=== PATIENT | female | born 1970 | race Caucasian/White ===

== ENCOUNTER 2018-02-23 13:14 | Observation (INO) | payer BC, SELFPAY ==
[2018-02-23] VITALS (8 sets, daily range): BP systolic 105–126; BP diastolic 49–79; PULSE 77–86; RESP 14–20; TEMP 36.5–37.1; O2SAT 96–100
--- NOTE | 2018-02-23 13:59 | NUR.NOTE ---
KRISTINA Palumbo is at the bedside.
--- NOTE | 2018-02-23 14:02 | DI.RAD_ITS ---
SYMPTOM/DIAGNOSIS: CHEST DISCOMFORT, DIFFICULTY SWALLOWING PA AND LATERAL CHEST: The heart size is normal. The lungs are well inflated and clear. There is no evidence of pneumothorax or pneumomediastinum. Surgical clips are noted in the right upper quadrant. IMPRESSION: Negative chest xray.
--- NOTE | 2018-02-23 14:04 | W.ED.GENAD ---
Discharge Plan Disposition Patient Disposition: [facility] Condition: Fair Discharge Details Chief Complaint: Abd Prob Clinical Impression: Food impaction of esophagus Primary Care Provider: Jessica Mack ED Provider: Deepali Clinton Home Meds and New Rx's Prescriptions: No Action amitriptyline 10 MG tablet 10 mg PO PRN RF: 0 meloxicam 7.5 MG/5 ML suspension 15 mg PO DAILY RF: 0 fexofenadine [Aller-ease] 180 MG tablet 180 mg PO DAILY RF: 0 omeprazole [Prilosec] 20 MG capsule,delayed release(DR/EC) 20 mg PO DAILY RF: 0 montelukast [Singulair] 10 MG tablet 10 mg PO DAILY RF: 0 fluticasone [Flonase] 16 GM spray,suspension 2 spry Inhalation DAILY RF: 0 sertraline 50 MG tablet 50 mg PO DAILY RF: 0 Magnesium Oxide [Mag-Oxide Magnesium] 200 MG Tablet 200 mg PO DAILY RF: 0 Discharge Instructions Stand Alone Forms: DSU Post EGD Instructions, Kate Serna (DSU) Medical Decision Making Patient is a 47-year-old female, company by , with chief complaint of difficulty swallowing. Patient has history of hiatal hernia, IBS, GERD, depression. Patient is status post cholecystectomy, history of and EGD. Reports that her last EGD was approximately 12 years ago. She reports she has had episodes where she has had a foreign body become lodged in her throat or sensation of foreign body being stuck on multiple occasions. Typically associates this with large meals, particularly once she enjoys that she may be eating quickly, but is usually able to handle this well at home. She was seen by her primary care yesterday who begin her on Carafate and Pepcid. However, patient is not been able to tolerate the medication. She reports that anything more than once of water causes her to bring the substance back up immediately. Is endorsing some chest pressure that radiates into the back. She reports that this pain and discomfort is typical of her foreign body sensations. Reports that she is also tried drinking soda quickly as this is also helped clear foreign bodies historically. However, she has not been able to keep this down. States that the symptoms came on while eating chicken 2 nights ago Patient is resting comfortably, handling secretions well. Lungs are clear. No abnormalities palpated over the neck or throat, no abnormalities noted in the posterior oropharynx. Consulted with general surgeon, Dr. Hernandez, who advised that we try IV glucagon to stage this is not she is she will plan on EGD Laboratory evaluation signfiicant for potassium of 3.3 Dr. Hernandez in department, we reviewed cxr, no acute abnormality noted. Dr. Hernandez consulted with patient. At this time, she advises EGD. She brought patient to OR for proceudre. HPI General Mode of arrival: ambulatory. Date/Time Provider Initiated Documentation: 02/23/18 13:20. Limitations to Documentation: no limitations. Information obtained by: patient and family. History of Present Illness 47 year old F presents to the emergency department with the chief complaint of FB sensation in throat, described as moderate, Quality is described as aching, and is localized to the neck and chest. Patient started experiencing this day(s) (2) and it has been constant. No relieving factors improve symptom(s), No exacerbating factors reported . Patient notes chest pain (has pressure which is typical with this sensation per her report) and loss of appetite; denies cough, fever/chills, headaches, nausea/vomiting, rash and shortness of breath. Patient did receive the following treatments prior to arrival, none Related Data Home Medications Medication Instructions Recorded Confirmed fexofenadine [Nicolasa] 180 mg PO DAILY 03/03/14 02/14/17 fluticasone [Flonase] 2 spry INHALATION DAILY 03/03/14 02/14/17 montelukast [Singulair] 10 mg PO DAILY 03/03/14 02/14/17 omeprazole [Prilosec] 20 mg PO DAILY 03/03/14 02/14/17 sertraline 50 mg PO DAILY 03/03/14 02/14/17 amitriptyline 10 mg PO PRN 12/13/16 02/14/17 meloxicam 15 mg PO DAILY ml 12/13/16 02/14/17 Magnesium Oxide [Mag-Oxide 200 mg PO DAILY 12/15/16 02/14/17 Magnesium] Allergies Allergy/AdvReac Type Severity Reaction Status Date / Time No Known Allergies Allergy Unverified 02/14/17 07:50 General Stated Complaint: Abd Prob SOCORRO: 3 Review of Systems Constitutional Reports as per HPI, Denies chills, Denies fatigue, Denies fever(s) and Denies headache(s) ENT Reports dysphagia and Denies headache(s) Cardiovascular Reports as per HPI, Denies chest pain and Denies dyspnea Respiratory Denies dyspnea Gastrointestinal Reports as per HPI, Denies abdominal pain, Denies belching, Denies bloating, Denies constipation, Denies cramping, Reports dysphagia, Reports heartburn, Denies nausea and Denies vomiting Musculoskeletal Reports as per HPI and Reports back pain (states pain radiates into back) Integumentary/Breasts Reports as per HPI and Denies rash Neurologic Denies headache(s) Endocrine Denies fatigue [facility] Medical History Depression GERD (gastroesophageal reflux disease) Hiatal hernia IBS (irritable bowel syndrome) Seasonal allergies Surgical History section Cholecystectomy Tonsillectomy and adenoidectomy Social History Smoking/Tobacco Use Status: Never Exam Const General: cooperative, healthy appearing, comfortable, no acute distress and well developed Nutritional Appearance: well nourished and overweight Orientation: alert and awake [facility] Head: normal to inspection Mouth: oral mucosae normal, lip normal, tongue normal, oropharynx normal and moist mucous membranes Teeth and gingiva: dentition normal Throat: posterior oropharynx normal, tonsils normal and uvula midline Neck Neck: normal visual inspection, full ROM, no lymphadenopathy, no meningeal signs, trachea midline, supple, no anterior neck swelling, nontender and no tracheal deviation Thyroid: thyroid normal Resp Effort & Inspection: normal respiratory effort, able to speak in complete sentences and no respiratory distress Auscultation: clear to auscultation bilaterally, no rales, no rhonchi and no wheezes Cardio Rate: regular rate Rhythm: regular rhythm Heart Sounds: S1 normal and S2 normal GI Inspection: normal to inspection Palpation: soft, no hepatosplenomegaly, no guarding, not rigid and nontender Back/Spine/Pelvis Back: no CVA tenderness Skin General skin exam: no rashes or lesions noted Trauma: no lacerations or abrasions Neuro General: alert and awake Cognition: normal cognition Speech: speech normal Gait: normal gait Psych Appearance: grossly normal and well kempt Mental Status: mental status grossly normal Speech and Movement: speech and movement normal Course Vital Signs Temperature 36.5 C 02/23/18 13:31 Pulse 81 02/23/18 13:31 Respiratory Rate 16 02/23/18 13:31 Blood Pressure 126/79 02/23/18 13:31 Pulse Oximetry 99 02/23/18 13:31 Temperature 36.5 C 02/23/18 13:31 Temperature Source Skin 02/23/18 13:31 Pulse 81 02/23/18 13:31 Respiratory Rate 16 02/23/18 13:31 Respiratory Effort 02/23/18 13:36 Blood Pressure 126/79 02/23/18 13:31 Blood Pressure Position Sitting 02/23/18 13:31 Pulse Oximetry 99 02/23/18 13:31 Pain Level 0 02/23/18 13:31
--- NOTE | 2018-02-23 14:16 | ED.GENADUL_ITS ---
Discharge Plan Disposition Patient Disposition: [facility] Condition: Fair Discharge Details Chief Complaint: Abd Prob Clinical Impression: Food impaction of esophagus Primary Care Provider: Jessica Mack ED Provider: Deepali Clinton Home Meds and New Rx's Prescriptions: No Action amitriptyline 10 MG tablet 10 mg PO PRN RF: 0 meloxicam 7.5 MG/5 ML suspension 15 mg PO DAILY RF: 0 fexofenadine [Aller-ease] 180 MG tablet 180 mg PO DAILY RF: 0 omeprazole [Prilosec] 20 MG capsule,delayed release(DR/EC) 20 mg PO DAILY RF: 0 montelukast [Singulair] 10 MG tablet 10 mg PO DAILY RF: 0 fluticasone [Flonase] 16 GM spray,suspension 2 spry Inhalation DAILY RF: 0 sertraline 50 MG tablet 50 mg PO DAILY RF: 0 Magnesium Oxide [Mag-Oxide Magnesium] 200 MG Tablet 200 mg PO DAILY RF: 0 Discharge Instructions Stand Alone Forms: DSU Post EGD Instructions, Kate Serna (DSU) Medical Decision Making Patient is a 47-year-old female, company by , with chief complaint of difficulty swallowing. Patient has history of hiatal hernia, IBS, GERD, depression. Patient is status post cholecystectomy, history of and EGD. Reports that her last EGD was approximately 12 years ago. She reports she has had episodes where she has had a foreign body become lodged in her throat or sensation of foreign body being stuck on multiple occasions. Typically associates this with large meals, particularly once she enjoys that she may be eating quickly, but is usually able to handle this well at home. She was seen by her primary care yesterday who begin her on Carafate and Pepcid. However, patient is not been able to tolerate the medication. She reports that anything more than once of water causes her to bring the substance back up immediately. Is endorsing some chest pressure that radiates into the back. She reports that this pain and discomfort is typical of her foreign body sensations. Reports that she is also tried drinking soda quickly as this is also helped clear foreign bodies historically. However, she has not been able to keep this down. States that the symptoms came on while eating chicken 2 nights ago Patient is resting comfortably, handling secretions well. Lungs are clear. No abnormalities palpated over the neck or throat, no abnormalities noted in the posterior oropharynx. Consulted with general surgeon, Dr. Hernandez, who advised that we try IV glucagon to stage this is not she is she will plan on EGD Laboratory evaluation signfiicant for potassium of 3.3 Dr. Hernandez in department, we reviewed cxr, no acute abnormality noted. Dr. Hernandez consulted with patient. At this time, she advises EGD. She brought patient to OR for proceudre. HPI General Mode of arrival: ambulatory . Date/Time Provider Initiated Documentation: 02/23/18 13:20 . Limitations to Documentation: no limitations . Information obtained by: patient and family . History of Present Illness 47 year old F presents to the emergency department with the chief complaint of FB sensation in throat, described as moderate, Quality is described as aching, and is localized to the neck and chest. Patient started experiencing this day(s) (2) and it has been constant. No relieving factors improve symptom(s), No exacerbating factors reported . Patient notes chest pain (has pressure which is typical with this sensation per her report) and loss of appetite; denies cough, fever/chills, headaches, nausea/vomiting, rash and shortness of breath. Patient did receive the following treatments prior to arrival, none Related Data Home Medications Medication Instructions Recorded Confirmed fexofenadine [Nicolasa] 180 mg PO DAILY 03/03/14 02/14/17 fluticasone [Flonase] 2 spry INHALATION DAILY 03/03/14 02/14/17 montelukast [Singulair] 10 mg PO DAILY 03/03/14 02/14/17 omeprazole [Prilosec] 20 mg PO DAILY 03/03/14 02/14/17 sertraline 50 mg PO DAILY 03/03/14 02/14/17 amitriptyline 10 mg PO PRN 12/13/16 02/14/17 meloxicam 15 mg PO DAILY ml 12/13/16 02/14/17 Magnesium Oxide [Mag-Oxide 200 mg PO DAILY 12/15/16 02/14/17 Magnesium] Allergies Allergy/AdvReac Type Severity Reaction Status Date / Time No Known Allergies Allergy Unverified 02/14/17 07:50 General Stated Complaint: Abd Prob SOCORRO: 3 Review of Systems Constitutional Reports as per HPI, Denies chills, Denies fatigue, Denies fever(s) and Denies headache(s) ENT Reports dysphagia and Denies headache(s) Cardiovascular Reports as per HPI, Denies chest pain and Denies dyspnea Respiratory Denies dyspnea Gastrointestinal Reports as per HPI, Denies abdominal pain, Denies belching, Denies bloating, Denies constipation, Denies cramping, Reports dysphagia, Reports heartburn, Denies nausea and Denies vomiting Musculoskeletal Reports as per HPI and Reports back pain (states pain radiates into back) Integumentary/Breasts Reports as per HPI and Denies rash Neurologic Denies headache(s) Endocrine Denies fatigue [facility] Medical History Depression GERD (gastroesophageal reflux disease) Hiatal hernia IBS (irritable bowel syndrome) Seasonal allergies Surgical History section Cholecystectomy Tonsillectomy and adenoidectomy Social History Smoking/Tobacco Use Status: Never Exam Const General: cooperative, healthy appearing, comfortable, no acute distress and well developed Nutritional Appearance: well nourished and overweight Orientation: alert and awake [facility] Head: normal to inspection Mouth: oral mucosae normal, lip normal, tongue normal, oropharynx normal and moist mucous membranes Teeth and gingiva: dentition normal Throat: posterior oropharynx normal, tonsils normal and uvula midline Neck Neck: normal visual inspection, full ROM, no lymphadenopathy, no meningeal signs, trachea midline, supple, no anterior neck swelling, nontender and no tracheal deviation Thyroid: thyroid normal Resp Effort & Inspection: normal respiratory effort, able to speak in complete sentences and no respiratory distress Auscultation: clear to auscultation bilaterally, no rales, no rhonchi and no wheezes Cardio Rate: regular rate Rhythm: regular rhythm Heart Sounds: S1 normal and S2 normal GI Inspection: normal to inspection Palpation: soft, no hepatosplenomegaly, no guarding, not rigid and nontender Back/Spine/Pelvis Back: no CVA tenderness Skin General skin exam: no rashes or lesions noted Trauma: no lacerations or abrasions Neuro General: alert and awake Cognition: normal cognition Speech: speech normal Gait: normal gait Psych Appearance: grossly normal and well kempt Mental Status: mental status grossly normal Speech and Movement: speech and movement normal Course Vital Signs Temperature 36.5 C 02/23/18 13:31 Pulse 81 02/23/18 13:31 Respiratory Rate 16 02/23/18 13:31 Blood Pressure 126/79 02/23/18 13:31 Pulse Oximetry 99 02/23/18 13:31 Temperature 36.5 C 02/23/18 13:31 Temperature Source Skin 02/23/18 13:31 Pulse 81 02/23/18 13:31 Respiratory Rate 16 02/23/18 13:31 Respiratory Effort 02/23/18 13:36 Blood Pressure 126/79 02/23/18 13:31 Blood Pressure Position Sitting 02/23/18 13:31 Pulse Oximetry 99 02/23/18 13:31 Pain Level 0 02/23/18 13:31
[2018-02-23 15:20] LABS: Abs Immature Grans 0.01 k/cumm (0.0-0.09); Absolute Basophil Count 0.03 k/cumm (0.0-0.2); Absolute Lymphocyte Count 1.14 k/cumm (1.2-3.4); Absolute Monocyte Count 0.38 k/cumm (0.11-0.7); Basophils % 0.5; Eosinophils % 1.8; HCT 40.3 % (36.0-46.0); HGB 13.3 g/dL (12.0-15.5); Immature Grans % 0.2; Lymphocytes % 20.1; Mean Corpuscular Hemoglobin 30.4 pg (27.0-33.0); Mean Platelet Volume 9.3 fL (8.0-11.0); Monocytes % 6.7; Neutrophils % 70.7; Platelet Count 247 x1000/uL (130-400); RBC 4.38 m/cumm (4.00-5.20); RBC Distribution Width 12.4 % (11.7-14.6); White Blood Cell Count 5.66 k/cumm (4.4-10.8)
--- NOTE | 2018-02-23 15:26 | W.PM.HP.N ---
Date of service: 02/23/18 Time of Service: 15:26 Assessment and Plan (1) Food impaction of esophagus: Current visit: Yes Status: Acute 47 y/o female with a h/o GERD/ hiatal hernia who presents with symptoms suggestive of a food impaction. I suspect that she has an undiagnosed stricture. We discussed the rationale and procedure for an esophagogastroduodenoscopy with disimpaction of food bolus and possible dilation. Endoscopic procedure with risks, benefits, and alternatives reviewed. These include but are not limited to risks with general anesthesia, bleeding, perforation, aspiration, and possible additional procedures. All questions answered. Patient wishes to proceed. History of Present Illness Chief Complaint: Dysphagia Narrative: 47 y/o female seen in the ED at [facility]. Patient notes a history of hiatal hernia and dysphagia. Patient states that food does occasionally get stuck and is relieved with vomiting but she is usually able to resume eating a few hours later. However, 2 days ago, she ate some chicken and vomited but has not been able to get anything down since. She was seen by her PCP yesterday and prescribed Prilosec and Carafate. She was not able to get the pills down and even tried breaking open the Prilosec capsule but still could not get it down. She has been on Prilosec chronically. She had an EGD about 12 years ago. She has never been diagnosed with a stricture. She has never had an esophageal dilation. She notes a slight tightness in her chest but denies chest pain or difficulty breathing. She denies abdominal pain. One mg of glucagon was administered in the ED without relief. CXR was unremarkable. Review of Systems Constitutional Reports system reviewed and no additional complaints, except as docu Cardiovascular Denies chest pain and Reports chest pain at rest Gastrointestinal Denies abdominal pain, Denies nausea and Reports vomiting PFSH Medical History Depression GERD (gastroesophageal reflux disease) Hiatal hernia IBS (irritable bowel syndrome) Seasonal allergies Surgical History section Cholecystectomy Tonsillectomy and adenoidectomy Family History Aunt Breast cancer Father Prostate cancer Social History Smoking/Tobacco Use Status: Never Meds Home Medications Medication Instructions Recorded Confirmed Type fexofenadine [Nicolasa] 180 mg PO DAILY 03/03/14 02/14/17 History fluticasone [Flonase] 2 spry INHALATION DAILY 03/03/14 02/14/17 History montelukast [Singulair] 10 mg PO DAILY 03/03/14 02/14/17 History omeprazole [Prilosec] 20 mg PO DAILY 03/03/14 02/14/17 History sertraline 50 mg PO DAILY 03/03/14 02/14/17 History amitriptyline 10 mg PO PRN 12/13/16 02/14/17 History meloxicam 15 mg PO DAILY ml 12/13/16 02/14/17 History Magnesium Oxide [Mag-Oxide 200 mg PO DAILY 12/15/16 02/14/17 History Magnesium] Allergies Allergy/AdvReac Type Severity Reaction Status Date / Time No Known Allergies Allergy Unverified 02/14/17 07:50 Exam Const General: cooperative, no acute distress and well developed Nutritional Appearance: well nourished Orientation: alert and oriented x3 Neck Neck: no lymphadenopathy, trachea midline, supple and no JVD Resp Effort & Inspection: normal respiratory effort and able to speak in complete sentences Cardio Jugular venous pressure: no JVD Rate: regular rate Rhythm: regular rhythm GI Inspection: non-distended Palpation: soft, not firm, no guarding, no masses, not rigid and nontender Skin General skin exam: no rashes or lesions noted and no jaundice Results Imaging Chest x-ray: report reviewed and image reviewed Imaging Studies: Patient Name: JO GRAVES #: [id number]: ER Ordering Provider: Deepali Clintonramiro #: [id number]: [facility] ER Primary Care Provider: Jessica Mack M.D.Date of Exam: 02/23/18ex: F Admission Date: 02/23/18 : 1970 Age: 47 Exam(s) a RAD:XR chest 2V PA & lateral SYMPTOM/DIAGNOSIS: CHEST DISCOMFORT, DIFFICULTY SWALLOWING PA AND LATERAL CHEST: The heart size is normal. The lungs are well inflated and clear. There is no evidence of pneumothorax or pneumomediastinum. Surgical clips are noted in the right upper quadrant. IMPRESSION: Negative chest xray. Ordered By: Deepali Clinton CC: Dictated By: Marcella Marinelli M.D. 02/23/18 [id number] <Electronically signed by Marcella Mrainelli M.D.> 02/23/18 1535 Transcribed By: Jeanine Mitchell 02/23/18 1509 This is privileged, confidential information intended only for the provider named. Any use or distribution by any person other than this provider is strictly prohibited. If you receive this report in error, please notify us immediately at [phone] and return the original report to us at the address above. Thank-you. Labs : 02/23/18 15:15 02/23/18 14:25 Laboratory Results - last 24 hr 02/23/18 02/23/18 02/23/18 14:25 14:25 15:15 WBC Cancelled 5.66 RBC Cancelled 4.38 Hgb Cancelled 13.3 Hct Cancelled 40.3 MCV Cancelled 92.0 MCH Cancelled 30.4 MCHC Cancelled 33.0 RDW Cancelled 12.4 Plt Count Cancelled 247 MPV Cancelled 9.3 Abs Immat Gran (auto) Cancelled Immature Gran % Cancelled 0.2 Neutrophils % Cancelled 70.7 Lymphocytes % Cancelled 20.1 Monocytes % Cancelled 6.7 Eosinophils % Cancelled 1.8 Basophils % Cancelled 0.5 Absolute Neutrophils Cancelled 4.00 Band Neutrophils Cancelled Absolute Lymphocytes Cancelled 1.14 L Absolute Monocytes Cancelled 0.38 Absolute Eosinophils Cancelled 0.10 Absolute Basophils Cancelled 0.03 Metamyelocytes Cancelled Myelocytes Cancelled Promyelocytes Cancelled Nucleated RBCs Cancelled Differential Comment Cancelled Atypical Lymphocytes Cancelled Other Cell Type Cancelled RBC Morphology Cancelled Polychromasia Cancelled Hypochromasia Cancelled Poikilocytosis Cancelled Basophilic Stippling Cancelled Anisocytosis Cancelled Microcytosis Cancelled Macrocytosis Cancelled Spherocytes Cancelled Target Cells Cancelled Tear Drop Cells Cancelled Ovalocytes Cancelled Stomatocytes Cancelled Rose-Havre Bodies Cancelled Hammond Cells Cancelled Acanthocytes (Spur) Cancelled Schistocytes Cancelled Sodium Cancelled Potassium Cancelled Chloride Cancelled Carbon Dioxide Cancelled Anion Gap Cancelled BUN Cancelled Creatinine Cancelled Estimated GFR/1.73 m2 Cancelled Glucose Cancelled Calcium Cancelled Magnesium Cancelled Total Bilirubin Cancelled AST Cancelled ALT Cancelled Alkaline Phosphatase Cancelled Troponin I Cancelled Total Protein Cancelled Albumin Cancelled Last Vital Signs Temp 36.5 C 02/23/18 13:31 Pulse 81 02/23/18 13:31 Resp 16 02/23/18 13:31 BP 126/79 02/23/18 13:31 Pulse Ox 99 02/23/18 13:31
[2018-02-23 15:43] LABS: ALT 25 U/L (12-78); AST 21 U/L (15-37); Albumin 3.9 g/dL (3.4-5.0); Alkaline Phosphatase 95 U/L (46-116); Anion Gap 13.7 mmol/L (3-11); BUN 15 mg/dL (7-18); Bilirubin, Total 0.5 mg/dL (0.2-1.0); CO2 25.3 mmol/L (21.0-32.0); CREATININE 0.81 mg/dL (0.55-1.02); Calcium 8.9 mg/dL (8.5-10.1); Chloride 103 mmol/L (98-107); Glucose 110 mg/dL (70-100); Magnesium 1.8 mg/dL (1.8-2.4); Potassium 3.3 mmol/L (3.5-5.1); Sodium 142 mmol/L (136-145)
[2018-02-23 15:44] LABS: Troponin I < 0.02 ng/mL (0.00-0.06)
[2018-02-23] MEDS: Lactated Ringers 1,000 ML 80 ML IV ×2 (16:07→16:35)
--- NOTE | 2018-02-23 16:48 | STOM_PTH ---
PATIENT: Marli Long LOC: U#:[id number] AGE/SX: 47/F ROOM: RE02/23/[address]: Ankur Hernandez : 1970 BED: A DIS: 02/23/2018 SPEC #: [id number] RECD: 02/23/18 18:02 STATUS: EDWARD REQ #: [id number] MORENO: 02/23/18 16:[address]: Ankur Hernandez DEPT: Surgical Specimen RECD BY: Loyda Gates ENTERED: 02/23/18 18:03 SP TYPE: STOMACH OTHR DR: Jessica Mack Tissues: 1 - STOMACH BIOPSY 2 - ESOPHAGUS BIOPSY Procedures: GROSS AND MICRO LEVEL 4 Comments: [id number]
--- NOTE | 2018-02-23 17:34 | ROE_ITS ---
Date of service: 02/23/18 Time of Service: 17:27 Operative Note DATE OF PROCEDURE: 02/23/18 PRE-OP DIAGNOSIS: Food impaction, esophagus POST-OP DIAGNOSIS: same PROCEDURE: Esophagogastroduodenoscopy with balloon dilation to 18 mm and gastric polyp biopsies SURGEON: Ankur Hernandez ANESTHESIA: LEONELA ESTIMATED BLOOD LOSS: 1 PATHOLOGY: other (1. Gastric polyps 2. GE junction biopsies) COMPLICATIONS: None Patient was transported to: PACU Patient's condition: stable Indications: 47 y/o female who vomited after eating chicken 2 days ago. She has since not been able to keep down any food or water except for very tiny sips of water. She is not able to get her oral meds down. She presents at this time for an EGD. Endoscopic procedure with risks, benefits, and alternatives discussed with the patient and informed consent obtained prior to endoscopy. Findings: Bolus of chicken at the GE junction. Partially extracted with liu graspers. The remainder was pushed through gently into the gastric lumen. Mild erythema of the GE junction and gastric mucosa. Gastric polyps in the body of the stomach consistent with reactive gastropathy. Normal duodenal bulb and second portion of the duodenum. No significant hiatal hernia on retroflexed view. GE junction biopsies performed. Procedure Description: Patient was brought to the operating room and placed on the table in the supine position. Patient was intubated and placed under general anesthesia. Bite block was placed. Olympus gastroscope was advanced. The upper esophagus was unremarkable. There was some clear fluid/saliva noted in the mid-distal esophagus. A bolus of food grossly consistent with chicken was noted just proximal to the GE junction. A large piece of this was grasped with a liu grasper and removed. The scope was reintroduced. With gentle pressure, the remaining food bolus was able to be pushed into the gastric lumen. There is some erythema of the gastric mucosa consistent with a mild gastritis. Scope was advance beyond the pylorus to the second portion of the duodenum. Duodenal mucosa was grossly unremarkable. Duodenal bulb was unremarkable. The scope was withdrawn into the stomach and retroflexed. No significant hiatal hernia noted on retroflexed view. A few scattered gastric polyps noted along t he body of the stomach consistent with reactive gastropathy. The scope was withdrawn to the GE junction. Balloon dilator was inserted across the GE junction and dilated up to 18 mm. This was able to be advanced and withdrawn without resistance at 18 mm. The balloon was not able to be dilated further as adequate PSI could not be achieved with the syringe apparatus. The balloon dilator was then deflated and withdrawn. Several of the gastric polyps were biopsied with cold biopsy forceps. The GE junction was likewise biopsied with the cold biopsy forceps. Good hemostasis noted. Stomach decompressed prior to withdrawing the scope. The patient tolerated the procedure well, was awakened from anesthesia, and transferred to recovery in satisfactory condition.
--- NOTE | 2018-02-23 17:58 | W.PM.DS.N ---
DS: Diagnosis Discharge Diagnosis (1) Food impaction of esophagus: Status: Acute Discharge Plan Disposition Condition: Good Discharge Details Chief Complaint: Abd Prob Admit Date/Time: 02/23/18 17:54 Admit Provider: Ankur Hernandez Attending Provider: Ankur Hernandez Primary Care Provider: Jessica Mack ED Provider: Deepali Clinton Home Meds and New Rx's Prescriptions: Continued amitriptyline 10 MG tablet 10 mg PO PRN RF: 0 meloxicam 7.5 MG/5 ML suspension 15 mg PO DAILY RF: 0 fexofenadine [Aller-ease] 180 MG tablet 180 mg PO DAILY RF: 0 omeprazole [Prilosec] 20 MG capsule,delayed release(DR/EC) 20 mg PO DAILY RF: 0 montelukast [Singulair] 10 MG tablet 10 mg PO DAILY RF: 0 fluticasone [Flonase] 16 GM spray,suspension 2 spry Inhalation DAILY RF: 0 sertraline 50 MG tablet 50 mg PO DAILY RF: 0 Magnesium Oxide [Mag-Oxide Magnesium] 200 MG Tablet 200 mg PO DAILY RF: 0 Discharge Instructions Additional Instructions: Stay on full liquid diet x 3 days. Take Carafate and Prilosec as prescribed by PCP. Stand Alone Forms: [facility]SU Post EGD Instructions, Kate Serna ([facility]U) Referrals: Zora Tapia MD [ [facility]] - (Follow-up in 1-2 weeks re: EGD/biopsies) Discharge Data Discharge Physician: Ankur Hernandez DS: Data Vitals/I&O Vitals and I&O: Vital Signs Temperature 36.7 C 02/23/18 17:40 Temperature Source Skin 02/23/18 13:31 Pulse 78 02/23/18 17:40 Respiratory Rate 14 02/23/18 17:40 Respiratory Effort 02/23/18 13:36 Blood Pressure 108/65 02/23/18 17:40 Blood Pressure Position Sitting 02/23/18 13:31 Pulse Oximetry 96 02/23/18 17:40 Respiratory End-tidal CO2 30 02/23/18 17:40 Oxygen Delivery Method Room Air 02/23/18 17:40 Oxygen Flow Rate 0 02/23/18 17:40 Pain Level 2 02/23/18 17:40 Intake & Output 02/22/18 02/23/18 02/23/18 23:59 11:59 23:59 Intake Total 1350 / 1350 Balance 1350 / 1350 Weight 97.4 kg Intake: IV 1300 / 1300 Oral 50 / 50 Other: Emesis Description None Labs on day of discharge: Labs from last 24 hours 02/23/18 02/23/18 02/23/18 15:15 15:15 14:25 WBC 5.66 Cancelled RBC 4.38 Cancelled Hgb 13.3 Cancelled Hct 40.3 Cancelled MCV 92.0 Cancelled MCH 30.4 Cancelled MCHC 33.0 Cancelled RDW 12.4 Cancelled Plt Count 247 Cancelled MPV 9.3 Cancelled Abs Immat Gran (auto) Cancelled Immature Gran % 0.2 Cancelled Neutrophils % 70.7 Cancelled Lymphocytes % 20.1 Cancelled Monocytes % 6.7 Cancelled Eosinophils % 1.8 Cancelled Basophils % 0.5 Cancelled Absolute Neutrophils 4.00 Cancelled Band Neutrophils Cancelled Absolute Lymphocytes 1.14 L Cancelled Absolute Monocytes 0.38 Cancelled Absolute Eosinophils 0.10 Cancelled Absolute Basophils 0.03 Cancelled Metamyelocytes Cancelled Myelocytes Cancelled Promyelocytes Cancelled Nucleated RBCs Cancelled Differential Comment Cancelled Atypical Lymphocytes Cancelled Other Cell Type Cancelled RBC Morphology Cancelled Polychromasia Cancelled Hypochromasia Cancelled Poikilocytosis Cancelled Basophilic Stippling Cancelled Anisocytosis Cancelled Microcytosis Cancelled Macrocytosis Cancelled Spherocytes Cancelled Target Cells Cancelled Tear Drop Cells Cancelled Ovalocytes Cancelled Stomatocytes Cancelled Rose-Stokes Bodies Cancelled Dayan Cells Cancelled Acanthocytes (Spur) Cancelled Schistocytes Cancelled Sodium 142 Potassium 3.3 L Chloride 103 Carbon Dioxide 25.3 Anion Gap 13.7 H BUN 15 Creatinine 0.81 Estimated GFR/1.73 m2 >= 60.00 Glucose 110 H Calcium 8.9 Magnesium 1.8 Total Bilirubin 0.5 AST 21 ALT 25 Alkaline Phosphatase 95 Troponin I < 0.02 Total Protein 8.0 Albumin 3.9 02/23/18 14:25 WBC RBC Hgb Hct MCV MCH MCHC RDW Plt Count MPV Abs Immat Gran (auto) Immature Gran % Neutrophils % Lymphocytes % Monocytes % Eosinophils % Basophils % Absolute Neutrophils Band Neutrophils Absolute Lymphocytes Absolute Monocytes Absolute Eosinophils Absolute Basophils Metamyelocytes Myelocytes Promyelocytes Nucleated RBCs Differential Comment Atypical Lymphocytes Other Cell Type RBC Morphology Polychromasia Hypochromasia Poikilocytosis Basophilic Stippling Anisocytosis Microcytosis Macrocytosis Spherocytes Target Cells Tear Drop Cells Ovalocytes Stomatocytes Rose-Stokes Bodies [place] Cells Acanthocytes (Spur) Schistocytes Sodium Cancelled Potassium Cancelled Chloride Cancelled Carbon Dioxide Cancelled Anion Gap Cancelled BUN Cancelled Creatinine Cancelled Estimated GFR/1.73 m2 Cancelled Glucose Cancelled Calcium Cancelled Magnesium Cancelled Total Bilirubin Cancelled AST Cancelled ALT Cancelled Alkaline Phosphatase Cancelled Troponin I Cancelled Total Protein Cancelled Albumin Cancelled [facility] Medical History Depression GERD (gastroesophageal reflux disease) Hiatal hernia IBS (irritable bowel syndrome) Seasonal allergies Surgical History section Cholecystectomy Tonsillectomy and adenoidectomy Social History Smoking/Tobacco Use Status: Never
== END 2018-02-23 18:39 | disposition home or self-care (01) ==
LOC: ER 17:50 → SUR 17:53 → MS 17:54
PROVIDERS: Admitting Provider Surgery; Emergency Provider Physician Assistant; PCP Family Medicine; Visit Provider Surgery
PROC: 0DC68ZZ Extirpation of Matter from Stomach, Via Natural or Artificial Opening Endoscopic (ICD-10-PCS; CPT 43247; principal; 2018-02-23 15:35)
DX: T18.128A Food in esophagus causing other injury, initial encounter (principal); K22.10 Ulcer of esophagus without bleeding; K31.7 Polyp of stomach and duodenum; K21.9 Gastro-esophageal reflux disease without esophagitis; K44.9 Diaphragmatic hernia without obstruction or gangrene; K31.89 Other diseases of stomach and duodenum
CPT/HCPCS: 43249; 43239; 36415; 80053; 88305; 96374; 99235; 99285; NC; 71046; 83735; 84484; 85025; 99284; J1100; J1610; J2250; J2405

== ENCOUNTER 2018-06-20 16:27 | Outpatient (REF) | payer BC, SELFPAY ==
--- NOTE | 2018-06-20 13:30 | PAPFT_PTH ---
PATIENT: Marli Long LOC: NCN #:[id number] AGE/SX: 48/F ROOM: RE06/20/[address]: Jessica Mack : 1970 BED: DIS: 06/20/2018 SPEC #: [id number] RECD: 06/21/18 12:40 STATUS: EDWARD RESony #: [id number] MORENO: 06/20/18 13:[address]: Jessica Mack DEPT: [facility] Cytology RECD BY: Loyda Gates Tissues: 1 - CX/ENDOCX FOR PAP SMEARS Procedures: PAP THIN PREP/UVM Screening HPV DNA PROBE Comments: [id number]
== END 2018-06-20 16:47 ==
LOC: NCHCN 16:27
PROVIDERS: PCP Family Medicine; Visit Provider Family Medicine
DX: Z00.00 Encounter for general adult medical examination without abnormal findings (principal); Z12.4 Encounter for screening for malignant neoplasm of cervix; Z11.51 Encounter for screening for human papillomavirus (HPV)
CPT/HCPCS: 88142; 87624

== ENCOUNTER 2018-06-22 08:54 | Outpatient (CLI) | payer BC, SELFPAY ==
[2018-06-22 10:06] LABS: Hemoglobin A1C 5.6 % (4.5-6.2)
[2018-06-22 10:31] LABS: Glucose 96 mg/dL (70-100)
== END 2018-06-22 09:14 ==
PROVIDERS: PCP Family Medicine; Visit Provider Family Medicine
DX: R73.9 Hyperglycemia, unspecified (principal)
CPT/HCPCS: 36415; 82947; 83036

== ENCOUNTER 2019-11-04 09:11 | Day surgery (SDC) | payer BC, SELFPAY ==
--- NOTE | 2019-11-04 06:40 | W.COLOREPORT ---
Date of service: 11/04/19 Time of Service: 10:41 Colonoscopy Report Date of procedure: 11/04/19 Pre-op diagnosis general: Colon Cancer Screening Post-op diagnosis procedure note: other (Polyps) Procedure: Colonoscopy with polypectomy Surgeon: Zora Tapia Anesthesia proc note operative: other (General/ ASA 2/Jose Rojas CRNA) Estimated blood loss (mL): 3 Pathology: other (Cecal polyp and ascending polyp) Complications: None Disposition: same day Indications: The patient is here for Colonoscopy pre-op. Her last screening was at [facility] in 2012, which was unremarkable. Recommended follow up in 7 years. She has no family history of colon cancer. She has not had any bowel habit changes and describes long standing diarrhea. This may be due to her daily dose of 400mg magnesium. -Discussed colonoscopy bowel prep as well as the procedure. Discussed possible complications of the procedure to include bleeding, pain, perforation, missed small lesion/polyp, sore throat, aspiration and adverse reaction to the medications. Questions were answered to patient?s satisfaction. No guarantees were implied or given. Prep: Miralax/Dulcolax Procedure Start Time: : Procedure End Time: 11:16 Retraction Time: 22 minutes Findings: 2 sessile polyps Procedure Description: After informed consent was obtained the patient was taken to the procedure room and placed in a left decubitous position. Monitors were applied and a time out was done. The patients name, date of , procedure, allergies to medications and metal in their body was reviewed. The patient was then sedated. Once sedated and comfortable a rectal exam was done. External exam was normal. Internal exam revealed a normal sphincter tone and no palpable masses. The scope was then introduced and retro-flexed. No internal hemorrhoids, masses or polyps were identified on retro-flexion. The scope was then advanced to the cecum without difficulty. The ileocecal valve and appendiceal orifice were identified. The prep was adequate. The scope was then slowly retracted over 22minutes back into the rectum. Polyps were removed with a snare in the cecum and with forceps in the ascending colon. The scope was removed and the patient was woken up and taken back to Same day surgery in stable condition. The patient tolerated the procedure well and there were no immediate complications. Follow up: The patient should follow up in 3-5 years unless they develop changes in bowel habits or other new gastrointestinal complaints.
--- NOTE | 2019-11-04 06:41 | W.PM.DSUDISC ---
Discharge Plan Disposition Patient Disposition: HOME Condition: Good Discharge Details Reason For Visit: Colonoscopy Attending Provider: Zora Tapia Primary Care Provider: Jessica Mack Home Meds and New Rx's Prescriptions: Continued echinacea 400 mg capsule 400 mg PO DAILY RF: 0 magnesium oxide 400 mg magnesium capsule 400 mg PO DAILY RF: 0 dicyclomine 10 mg capsule 10 mg PO QID RF: 0 fluocinonide 0.05 % solution 1 applic TP BID RF: 0 fexofenadine [Aller-ease] 180 MG tablet 180 mg PO DAILY RF: 0 omeprazole [Prilosec] 20 MG capsule,delayed release(DR/EC) 20 mg PO DAILY RF: 0 montelukast [Singulair] 10 MG tablet 10 mg PO DAILY RF: 0 fluticasone propionate [Flonase] 16 GM spray,suspension 2 spry Inhalation DAILY RF: 0 sertraline 50 MG tablet 50 mg PO DAILY RF: 0 Discontinued polyethylene glycol 3350 17 gram/dose powder 238 g PO ONCE Qty: 238 RF: 0 bisacodyl [Dulcolax (bisacodyl)] 5 mg tablet,delayed release (DR/EC) 5 mg PO ONCE Qty: 4 RF: 0 Discharge Instructions Instructions: Colorectal Polyps (DC) Additional Instructions: Findings: 2 polyps Follow up: 3-5 years Please call if you develop: fevers >101.5 Nausea or Vomiting Abdominal pain that is not transient DAY SURGERY UNIT POST ENDOSCOPY INSTRUCTIONS 1. Because there will be medication in your system for the next 24 hours, you may feel a little sleepy. Your coordination will be affected. Therefore: a. Do not drive or operate dangerous equipment for 24 hours. b. Do not drink alcohol beverages for 24 hours (not even beer). c. Plan to go home and rest for the day. 2. Generally there are no restrictions on your activity after a day or so has gone by, but you may feel a bit fatigued for a few days. 3 After you arrive home you may have a light meal and return to a normal diet as you can tolerate it without feeling sick to your stomach. 4. After surgery, you may feel pain or discomfort. This should be only transient, but if it persists please contact your doctor. 5. If there are any questions regarding the findings of your procedure, please feel free to contact your doctor. 6. If you are unable to contact your doctor with a problem, contact the hospital at [phone]. 8. Continue all your regular medications unless directed otherwise. I understand the above instructions and have no questions. Signature of Patient or Responsible Adult Escort Date/Time Name of Responsible Adult Escort Signature of Nurse Date/Time Activity:: Activity as Tolerated Diet:: As Tolerated Discharge Orders Discharge Orders: Discharge Order (Routine); Ordered 11/04/19 Ordered By: Zora Tapia
[2019-11-04 09:19] VITALS: BP 113/79; PULSE 83; RESP 16; TEMP 36; O2SAT 97
[2019-11-04] MEDS: Lactated Ringers 1,000 ML 80 ML IV (09:49)
--- NOTE | 2019-11-04 10:57 | BOWEL_PTH ---
PATIENT: Marli Long LOC: [facility] U#:[id number] AGE/SX: 49/F ROOM: RE11/04/[address]: Zora Tapia MD : 1970 BED: DIS: 11/04/2019 SPEC #: [id number] RECD: 11/04/19 12:49 STATUS: EDWARD REQ #: [id number] MORENO: 11/04/19 10:[address]: Zoar Tapia DEPT: Surgical Specimen RECD BY: Loyda Gates ENTERED: 11/04/19 12:50 SP TYPE: Bowel OTHR DR: Jessica Mack Tissues: 1 - BIOPSY BOWEL 2 - BIOPSY BOWEL Procedures: GROSS AND MICRO LEVEL 4 Comments: [id number]
[2019-11-04 11:49] VITALS: BP 97/67; PULSE 55; RESP 17; TEMP 36.1; O2SAT 98
== END 2019-11-04 12:10 | disposition home or self-care (01) ==
LOC: SUR 09:11
PROVIDERS: PCP Family Medicine; Visit Provider Surgery
PROC: 0DJD8ZZ Inspection of Lower Intestinal Tract, Via Natural or Artificial Opening Endoscopic (ICD-10-PCS; CPT 45378; principal; 2019-11-04 10:00)
DX: Z12.11 Encounter for screening for malignant neoplasm of colon (principal); D12.0 Benign neoplasm of cecum; D12.2 Benign neoplasm of ascending colon
CPT/HCPCS: 45385; 45380; 81025; 88305; J2001; J2704

== ENCOUNTER 2020-03-24 01:04 | Outpatient (CLI) | payer BC, SELFPAY ==
--- NOTE | 2020-03-24 08:47 | DI.MAMMO_ITS ---
EXAM: MAMMO SCREENING CLINICAL HISTORY: SCREENING, Z12.31 TECHNIQUE: Mammograms were interpreted according to the usual protocol including computer analysis w [employer] CAD system, tomosynthesis and C-view imaging. COMPARISON: 2013 through 2017 FINDINGS: The breasts are composed of heterogeneously dense fibroglandular densities, Breast Density category C . No suspicious masses or suspicious microcalcifications are seen. No skin thickening or abnormal axillary lymph nodes are seen. There has been no significant change from prior exams. IMPRESSION: BI-RADS Category 1, Negative mammogram. Yearly screening mammography is recommended. Breast Density Category C, heterogeneously Dense. The mammogram demonstrates the patient's breast tissue is dense. Dense breast tissue is very common a nd is not abnormal but dense breast tissue can make it harder to find cancer on a mammogram. Also, de nse breast tissue may increase breast cancer risk. This information about the result of the mammogram report was provided to the patient to raise their awareness. Use this report when you speak with the patient about their risks for breast cancer, which includes their family history. At that time, you may recommend additional screening tests (Ultrasound or MRI) as they might be useful based on their r isk. A negative radiographic report should not delay biopsy if a dominant or clinically suspicious mass is present. Up to ten percent of cancers are not identified on mammography. A negative report may reinforce clinical impression. Adenosis and dense breasts may obscure an underlying neoplasm. False positive reports average 6 to 10%.
== END 2020-03-24 01:24 ==
PROVIDERS: PCP Family Medicine; Visit Provider Family Medicine
DX: Z12.31 Encounter for screening mammogram for malignant neoplasm of breast (principal)
CPT/HCPCS: 77063; 77067

== ENCOUNTER 2020-09-10 03:03 | Outpatient (CLI) | payer OTHER, SELFPAY ==
--- NOTE | 2020-09-10 10:28 | DI.MRI_ITS ---
Exam(s) MR LUMBAR SPINE WO EXAM: MR LUMBAR SPINE WO CLINICAL HISTORY: RADICULOPATHY LUMBAR REGION, M54.16, LOWER BACK RT LEG PAIN/WEAKNESS. TECHNIQUE: Multiplanar multisequence MRI of the Lumbar spine was performed. COMPARISON: There are no plain film images of the lumbar spine available at the time of this MRI int erpretation FINDINGS: Five lumbar vertebrae are presumed. Conus medullaris is at normal level. There is no evidence of conus mass nor subjacent clumping of in trathecal nerve roots to suggest arachnoiditis. The distal thecal sac appears unremarkable.It ends a t the upper S2 level. There is no evidence of Tarlov intra sacral CIS nor other significant findings within the sacral canal. Bones:There are no fractures nor ominous osseous lesions in the lumbar vertebral bodies and visualize d sacrum. There is a benign intraosseous hemangioma incidentally noted T11 vertebral body. Smaller intraosseous hemangiomas are also evident in the S2 and S3 sacral levels. With respect to the individual levels... T12-L1: Unremarkable L1-2: Normal disc height and signal. No disc herniation nor central canal stenosis.No foraminal steno sis L2-3: Normal disc height. No disc herniation nor central canal stenosis.No foraminal stenosis.No face t arthropathy. L3-4: Normal disc height. No disc herniation or central canal stenosis.No foraminal stenosis.No face t arthropathy. L4-5: Normal disc height and signal. Mild symmetrical annular bulging. No distinct disc herniation. Annular bulging mildly flattens the anterior thecal sac. Central canal dimensions are lower normal . There is no significant foraminal stenosis. No significant facet arthropathy L5-S1: Normal disc height and signal. No disc herniation or central canal stenosis. No significant foraminal stenosis. No significant facet arthropathy. Soft tissues: paraspinal soft tissues appear unremarkable. IMPRESSION: 1. No evidence of significant intervertebral disc disease. All the disc spaces exhibit normal height and signal. No distinct disc herniation. No significant central nor foraminal stenosis. Also no o bvious facet arthropathy. 2. There is a benign intraosseous hemangioma evident in the T11 vertebral body. This measures approx imately 1.2 by 1.4 cm. Few other smaller benign intraosseous hemangiomas are noted in sacrum. DATA REPOSITORY:
== END 2020-09-10 03:23 ==
PROVIDERS: PCP Family Medicine; Visit Provider Nurse Practitioner
DX: D18.09 Hemangioma of other sites (principal); M54.16 Radiculopathy, lumbar region
CPT/HCPCS: 72148

== ENCOUNTER 2021-07-19 17:12 | Outpatient (REF) | payer OTHER, SELFPAY ==
[2021-07-19 18:50] LABS: Hemoglobin A1C 5.4 % (<5.7)
[2021-07-19 19:54] LABS: Calculated LDL 94 mg/dL (<100); Cholesterol 178 mg/dL (<200); HDL Cholesterol 68 mg/dL (40-60); Triglyceride 80 mg/dL (<150)
[2021-07-21 11:02] LABS: Hepatitis C Ab w Rflx HCV PCR Negative (Negative)
[2021-07-21 11:17] LABS: HIV-1/2 Ag & Ab Screen Negative (Negative)
== END 2021-07-19 17:13 | disposition home or self-care (01) ==
LOC: NCHCN 17:12
PROVIDERS: PCP Family Medicine; Visit Provider Family Medicine
DX: Z00.00 Encounter for general adult medical examination without abnormal findings (principal); E66.9 Obesity, unspecified; Z13.1 Encounter for screening for diabetes mellitus; Z11.4 Encounter for screening for human immunodeficiency virus [HIV]; Z11.59 Encounter for screening for other viral diseases
CPT/HCPCS: 80061; 86803; 87389; 83036

== ENCOUNTER 2022-04-18 01:12 | Outpatient (CLI) | payer OTHER, SELFPAY ==
--- NOTE | 2022-04-18 | DI.MAMMO_ITS ---
Exam(s) MAMMO SCREENING EXAM: MAMMO SCREENING CLINICAL HISTORY: SCREENING, Z12.31 TECHNIQUE: Bilateral full field digital CC and MLO mammographic images were obtained with 3D tomosyn thesis and utilizing computer aided detection (CAD). COMPARISON: Available for comparison. FINDINGS: Masses/Architectural Distortion: None seen. Microcalcifications: No suspicious pleomorphic-type are seen. Skin Thickening/Nipple Retraction: None. IMPRESSION: 1. No significant interval change with no specific features of malignancy noted. 2. Unless there is more urgent need, screening mammography is recommended, as per [employer] guidelines. BI-RADS Category 1 - Negative Breast Density - Category C - Heterogeneously dense Breast density category C or D implies that the patient has dense breast tissue. Dense breast tissue is very common and is not abnormal but dense breast tissue can make it harder to find cancer on a ma mmogram. Also, dense breast tissue may increase their breast cancer risk. This information about the result of the mammogram report was provided to the patient to raise their awareness. Use this report when you speak with the patient about their risks for breast cancer, which includes their family hist ory. At that time, you may recommend for more screening tests (Ultrasound or MRI) as they might be us eful based on their risk. A negative radiographic report should not delay biopsy if a dominant or clinically suspicious mass is present. Up to ten percent of cancers are not identified on mammography. A negative report may reinforce clinical impression. Adenosis and dense breasts may obscure an underlying neoplasm. False positive reports average 6 to 10%. Patient will receive a letter notifying them of these results.
== END 2022-04-18 01:32 ==
PROVIDERS: PCP Family Medicine; Visit Provider Family Medicine
DX: Z12.31 Encounter for screening mammogram for malignant neoplasm of breast (principal)
CPT/HCPCS: 77063; 77067

== ENCOUNTER 2023-02-25 04:59 | Day surgery (SDC) | payer OTHER, SELFPAY ==
[2023-02-25] VITALS (21 sets, daily range): BP systolic 102–136; BP diastolic 61–84; PULSE 57–88; RESP 14–20; TEMP 36.4–36.6; O2SAT 93–100; BMI 36.5
--- NOTE | 2023-02-25 05:00 | DI.RAD_ITS ---
Exam(s) XR CHEST 2V PA LATERAL EXAM: XR CHEST 2V PA LATERAL CLINICAL HISTORY: possible food impaction TECHNIQUE: 2D digital imaging was performed of the chest. Two images were obtained. PA and lateral views were obtained. COMPARISON: CR XR CHEST 2V PA LATERAL from 02/23/2018 FINDINGS: MEDIASTINUM: Normal. HEART: Normal. PULMONARY VASCULATURE: Normal. LUNGS: Clear. PLEURAL SPACE: No pleural effusion or pneumothorax. BONE:Within normal limits for the patient's age. OTHER FINDINGS:No radiopaque foreign bodies are seen. IMPRESSION: No acute pulmonary findings. DATA REPOSITORY: RADIATION DOSE DELIVERED:
[2023-02-25] MEDS: Glucagon 1 MG VIAL IVP (05:25)
[2023-02-25] MEDS: Water,Injection,Sterile 10 ML VIAL (05:25)
--- NOTE | 2023-02-25 05:29 | ED.GENADUL_ITS ---
Discharge Plan Discharge Details Chief Complaint: ForeignBody Primary Care Provider: Jessica Mack ED Provider: Sneha Hooper Home Meds and New Rx's Prescriptions: No Action duloxetine 60 mg capsule,delayed release(DR/EC) 60 mg PO DAILY Ozempic 1 mg/dose (4 mg/3 mL) pen injector 1 mg subcut QWEEK eletriptan 40 mg tablet See Rx Instructions PO .COMPLEX Rx Instructions: take 1 tab at onset of headache; if no relief, may repeat 1 tab after at least 2 hrs; max = 2 tabs/24 hrs PO melatonin 5 mg capsule 5 mg PO HS PRN azelastine 137 mcg (0.1 %) aerosol,spray 1 spray intranasal BID Rx Instructions: administer into each nostril riboflavin (vitamin B2) 400 mg tablet 400 mg PO DAILY echinacea 400 mg capsule 400 mg PO DAILY Rx Instructions: administer with meals magnesium oxide 400 mg magnesium capsule 400 mg PO DAILY dicyclomine 10 mg capsule 10 mg PO QID fluocinonide 0.05 % solution 1 applic TP BID fexofenadine [Aller-Ease] 180 MG tablet 180 mg PO DAILY omeprazole [Prilosec] 20 MG capsule,delayed release(DR/EC) 20 mg PO DAILY fluticasone propionate [Flonase] 16 GM spray,suspension 2 spry Inhalation DAILY Medical Decision Making 52yo F with hx of GERD, hiatial hernia, food impaction in 2018 requiring EGD, presenting for possible food impaction. 10 hours ago felt like chicken got stuck in her throat; sensation has persisted and she is unable to adequately swallow. Has chest tightness radiating into her back. No difficulty managing secretions, they do tend to come back out. Similar presentation in 2018, EGD revealed food impaction. Vital signs and physical exam reassuring, no respiratory distress, no drooling. Most likely food impaction. Not concerning for aortic dissection, low suspicion for acute coronary syndrome. Tried IV glucagon and PO effervescence without success. Labs reviewed as below, CBC & CMP reassuring with no actionable abnormalities. CXR and neck XR independently reviewed, apparent foreign body in esophagus consistent with described history, no perforation. VRAD reads pending. Discussed with surgeon head correction officer who will come evaluate patient, anticipate likely EGD today. Signed out to oncoming physician, patient pending surgical eval. Medical Records Medical records reviewed: Yes I reviewed the patient's medical records. Medical records narrative: ED note, operative report, from 2018 admission Imaging Data Radiologic Study: Imaging: X-Ray Radiologic Study #2: Imaging: X-Ray Lab Data Lab results reviewed: Yes I reviewed the patient's lab results. Labs: Laboratory Tests Range/Units 02/25/23 05:12 WBC (4.4-10.8) 10^3/uL 5.93 RBC (3.93-5.22) 10^6/uL 4.55 Hgb (11.2-15.7) g/dL 13.8 Hct (36.0-46.0) % 41.9 MCV (80-95) fL 92 MCH (27.0-33.0) pg 30.3 MCHC (32.0-36.0) % 32.9 RDW (11.7-14.6) % 12.3 Plt Count (130-400) 10^3/uL 313 MPV (8.0-11.0) fL 8.9 Immature Gran % 0.2 Neutrophils % 58.5 Lymphocytes % 29.2 Monocytes % 5.9 Eosinophils % 5.4 Basophils % 0.8 Nucleated RBC % (0.0-0.3) % 0.0 Absolute Neutrophils (1.2-6.7) 10^3/uL 3.47 Absolute Lymphocytes (1.2-3.4) 10^3/uL 1.73 Absolute Monocytes (0.1-0.8) 10^3/uL 0.35 Absolute Eosinophils (0.0-0.7) 10^3/uL 0.32 Absolute Basophils (0.0-0.2) 10^3/uL 0.05 Sodium (136-145) mmol/L 142 Potassium (3.5-5.1) mmol/L 3.5 Chloride (98-107) mmol/L 104 Carbon Dioxide (21.0-32.0) mmol/L 31.0 Anion Gap (3-11) mmol/L 7.0 BUN (7-18) mg/dL 9 Creatinine (0.55-1.02) mg/dL 0.9 Est GFR (CKD-EPI 2020) (mL/min/1.73m2) 77.88 Glucose (74-106) mg/dL 99 Calcium (8.5-10.1) mg/dL 9.4 Total Bilirubin (0.2-1.0) mg/dL 0.5 AST (15-37) U/L 31 ALT (14-59) U/L 35 Alkaline Phosphatase (46-116) U/L 132 H Troponin I (<or=60) ng/L < 50 Total Protein (6.4-8.2) g/dL 8.2 Albumin (3.4-5.0) g/dL 4.0 HPI General Mode of arrival: ambulatory . Date/Time Provider Initiated Documentation: 02/25/23 05:06 . Limitations to Documentation: no limitations . Information obtained by: patient and family . HPI Narrative: 52yo F with hx of GERD, hiatial hernia, food impaction in 2018 requiring EGD, presenting for possible food impaction. Was eating chicken parm yesterday evening and felt like a piece got stuck. Since then she has a sensation of tightness in her chest radiating into her back and has been unable to effectively swallow. She is able to swallow saliva but after a period of time a large amount will come back out. She has tried carbonated beverages at home without improvement. Everything she tries to swallow comes back up. Feels identical to prior episode in 2018. She is otherwise in her usual state of health. Related Data Home Medications Medication Instructions Recorded Confirmed fexofenadine 180 mg tablet 180 mg PO DAILY 03/03/14 02/25/23 (Aller-Ease) fluticasone propionate 50 2 spry inhalation DAILY 03/03/14 02/25/23 mcg/actuation nasal spray,suspension (Flonase) omeprazole 20 mg capsule,delayed 20 mg PO DAILY 03/03/14 02/25/23 release (Prilosec) dicyclomine 10 mg capsule 10 mg PO QID 10/15/19 02/25/23 fluocinonide 0.05 % topical 1 applic topical BID 10/15/19 02/25/23 solution magnesium oxide 400 mg PO DAILY 10/15/19 02/25/23 echinacea 400 mg capsule 400 mg PO DAILY 10/18/19 02/25/23 azelastine 137 mcg (0.1 %) nasal 1 spray intranasal BID 02/13/23 02/25/23 spray aerosol duloxetine 60 mg capsule,delayed 60 mg PO DAILY 02/13/23 02/25/23 release eletriptan 40 mg tablet See Rx Instructions PO .COMPLEX 02/13/23 02/25/23 melatonin 5 mg capsule 5 mg PO HS PRN 02/13/23 02/25/23 riboflavin (vitamin B2) 400 mg 400 mg PO DAILY 02/13/23 02/25/23 tablet semaglutide 1 mg/dose (4 mg/3 mL) 1 mg subcut QWEEK 02/13/23 02/25/23 subcutaneous pen injector (Ozempic) Allergies Allergy/AdvReac Type Severity Reaction Status Date / Time No Known Allergies Allergy Unverified 02/25/23 05:08 General Stated Complaint: ForeignBody SOCORRO: 2 Review of Systems Narrative: see HPI PFSH All Active Problems Gastroesophageal reflux disease without esophagitis (Acute) Sessile colonic polyp (Acute) Tubular adenoma of colon (Acute) Food impaction of esophagus (Acute) Medical History Lumbar back pain LESI L4-5 10/2020 Eczema Obesity Major depression Hypomagnesemia Back pain History of adenomatous polyp of colon Hiatal hernia IBS (irritable bowel syndrome) Seasonal allergies GERD (gastroesophageal reflux disease) Depression Surgical History History of esophageal dilatation obstruction removal and dilation done. History of colonoscopy x2 History of esophagogastroduodenoscopy (EGD) (~02/23/18) Tonsillectomy and adenoidectomy Cholecystectomy section Family History Aunt Breast cancer Father Prostate cancer Social History (Updated 02/14/23 @ 14:24 by KRISTINA Foster) Smoking/Tobacco Use Status: Never Smoking risk assessment performed?: Yes Alcohol Intake: current Alcohol Intake frequency: a few times a month Drug use: Occasionally Substance use type: marijuana Housing: house Current gender identity: female Do you feel safe at home: Yes Do you feel safe in your relationship?: Yes Exam Narrative Exam Narrative: General: Alert, well appearing, well nourished, in no acute distress. Head: Normocephalic, atraumatic Neck: Trachea midline, ?Neck supple. Cardiac: ?RRR, no murmurs. Resp: No respiratory distress. CTAB. No drooling. Abd: ?Non-distended. Extremities: ?No deformities.? No peripheral edema. Neurologic: GCS 15. ? Moves all extremities freely against gravity Course Vital Signs Vital signs: Vital Signs Pulse 78 02/25/23 05:05 Respiratory Rate 16 02/25/23 05:05 Blood Pressure 126/82 02/25/23 05:05 Pulse Oximetry 100 02/25/23 05:05 Pulse 78 02/25/23 05:05 Respiratory Rate 16 02/25/23 05:05 Respiratory Effort Normal 02/25/23 05:12 Respiratory Pattern Normal 02/25/23 05:12 Blood Pressure 126/82 02/25/23 05:05 Blood Pressure Position Sitting 02/25/23 05:05 Pulse Oximetry 100 02/25/23 05:05 Oxygen Delivery Method Room Air 02/25/23 05:05 Oxygen Flow Rate 0 02/25/23 05:05 Pain Level 2 02/25/23 05:05 Sign Out Sign Out Data: Sign Out Comment: Food impaction, surg to see, likely EGD. VRAD reads pending. Last updated by Sneha Hooper MD at 02/25/23 06:33
--- NOTE | 2023-02-25 05:30 | DI.RAD_ITS ---
Exam(s) XR SOFT TISSUE NECK EXAM: XR SOFT TISSUE NECK CLINICAL HISTORY: ? food impaction. TECHNIQUE: 2D digital imaging was performed. Two images were obtained. COMPARISON: No exams were available for comparison FINDINGS: BONES: No acute fracture is present. Visualized vertebral body and disc heights are maintained. SOFT TISSUE:Airway is patent without radiopaque foreign body. Epiglottis is not enlarged. Prevertebra l soft tissues appear unremarkable. IMPRESSION: Unremarkable radiographs of soft tissue neck. DATA REPOSITORY: RADIATION DOSE DELIVERED:
[2023-02-25 05:34] LABS: Abs Immature Grans 0.01 10^3/uL (0.0-0.06); Absolute Basophil Count 0.05 10^3/uL (0.0-0.2); Absolute Eosinophil Count 0.32 10^3/uL (0.0-0.7); Absolute Lymphocyte Count 1.73 10^3/uL (1.2-3.4); Absolute Monocyte Count 0.35 10^3/uL (0.1-0.8); Absolute Neutrophil Count 3.47 10^3/uL (1.2-6.7); Basophils % 0.8; Eosinophils % 5.4; HCT 41.9 % (36.0-46.0); HGB 13.8 g/dL (11.2-15.7); Immature Grans % 0.2; Lymphocytes % 29.2; MCH 30.3 pg (27.0-33.0); MCHC 32.9 % (32.0-36.0); MCV 92 fL (80-95); MPV 8.9 fL (8.0-11.0); Monocytes % 5.9; Neutrophils % 58.5; Platelet Count 313 10^3/uL (130-400); RBC 4.55 10^6/uL (3.93-5.22); RDW 12.3 % (11.7-14.6); RDW-SD 41.8 fL; WBC 5.93 10^3/uL (4.4-10.8)
[2023-02-25 05:55] LABS: ALT 35 U/L (14-59); AST 31 U/L (15-37); Alkaline Phosphatase 132 U/L (46-116); BUN 9 mg/dL (7-18); Bilirubin, Total 0.5 mg/dL (0.2-1.0); CREATININE 0.9 mg/dL (0.55-1.02); Calcium 9.4 mg/dL (8.5-10.1); Chloride 104 mmol/L (98-107); Estimated GFR 77.88 (mL/min/1.73m2); Glucose 99 mg/dL (74-106); Potassium 3.5 mmol/L (3.5-5.1); Sodium 142 mmol/L (136-145); Total Protein 8.2 g/dL (6.4-8.2); Troponin I < 50 ng/L (<or=60)
--- NOTE | 2023-02-25 05:57 | NUR.NOTE ---
E-Z gas effervescent granules given to pt. not successful.Nursing Note:
[2023-02-25] MEDS: Simethicone/Sod Bicarb/Cit Ac, 4 gram PACKET 1 PACKET PO (06:00)
--- NOTE | 2023-02-25 07:44 | W.EDPROG ---
Date of service: 02/25/23 Time of Service: 07:45 Medical Decision Making I received signout on this 52-year-old female with history of esophageal food impaction presenting to the emergency department with difficulty swallowing. She is pending surgical consultation and likely EGD. 1 PM Patient was taken by general surgery and anesthesia to the OR. Dispo per general surgery. Sign Out Sign Out Data: Sign Out Comment: Food impaction, surg to see, likely EGD. VRAD reads pending. Last updated by Sneha Hooper MD at 02/25/23 06:33 Discharge Plan Disposition Condition: Good Discharge Details Chief Complaint: ForeignBody Attending Provider: Guevara Gonzalez Primary Care Provider: Jessica Mack ED Provider: Mikey Altman Discharge Instructions Activity:: Activity as Tolerated Diet:: As Tolerated Discharge Orders Discharge Orders: Discharge Order (Routine); Ordered 02/25/23 Ordered By: Guevara Gonazlez Discharge Data Discharge Date/Time-TO BE ENTERED AT DEPARTURE: 02/25/23 10:10
--- NOTE | 2023-02-25 08:33 | W.SURGCON ---
Date of service: 02/25/23 Time of Service: 08:34 Assessment and Plan Assessment and plan (1) Food impaction of esophagus: Status: Acute Assessment and plan: 52-year-old woman with food impacted in her esophagus. Plan: EGD History of Present Illness Narrative: The patient is a 52-year-old woman who has had food get stuck in her esophagus before. She says she has a hiatal hernia and was told that was the reason many years ago last night she was eating chicken and it got stuck again. She waited a few hours and since it did not pass or she came to the ER. In the past she has tried waiting a couple of days and gone through her PCP but even that ended up needing endoscopy to get the food to go through. She is in no distress and able to breathe easily and is able to swallow her saliva. PFSH All Active Problems Gastroesophageal reflux disease without esophagitis (Acute) Sessile colonic polyp (Acute) Tubular adenoma of colon (Acute) Food impaction of esophagus (Acute) Medical History Lumbar back pain LESI L4-5 10/2020 Eczema Obesity Major depression Hypomagnesemia Back pain History of adenomatous polyp of colon Hiatal hernia IBS (irritable bowel syndrome) Seasonal allergies GERD (gastroesophageal reflux disease) Depression Surgical History History of esophageal dilatation obstruction removal and dilation done. History of colonoscopy x2 History of esophagogastroduodenoscopy (EGD) (~02/23/18) Tonsillectomy and adenoidectomy Cholecystectomy section Family History Aunt Breast cancer Father Prostate cancer Social History (Updated 02/14/23 @ 14:24 by KRISTINA Foster) Smoking/Tobacco Use Status: Never Smoking risk assessment performed?: Yes Alcohol Intake: current Alcohol Intake frequency: a few times a month Drug use: Occasionally Substance use type: marijuana Housing: house Current gender identity: female Do you feel safe at home: Yes Do you feel safe in your relationship?: Yes Exam Narrative Exam Narrative: General: Nontoxic, comfortable and interactive Neuro: Alert and orient x 3 Psych: Good mood and affect, good insight and understanding Chest: Nonlabored breathing, no wheezing Heart: Regular Results Last Vital Signs Pulse 78 02/25/23 05:05 Resp 16 02/25/23 05:05 BP 126/82 02/25/23 05:05 Pulse Ox 97 02/25/23 07:50 Labs 02/25/23 05:12 02/25/23 05:12 Labs: Laboratory Results - last 24 hr 02/25/23 05:12 WBC 5.93 RBC 4.55 Hgb 13.8 Hct 41.9 MCV 92 MCH 30.3 MCHC 32.9 RDW 12.3 Plt Count 313 MPV 8.9 Immature Gran % 0.2 Neutrophils % 58.5 Lymphocytes % 29.2 Monocytes % 5.9 Eosinophils % 5.4 Basophils % 0.8 Nucleated RBC % 0.0 Absolute Neutrophils 3.47 Absolute Lymphocytes 1.73 Absolute Monocytes 0.35 Absolute Eosinophils 0.32 Absolute Basophils 0.05 Sodium 142 Potassium 3.5 Chloride 104 Carbon Dioxide 31.0 Anion Gap 7.0 BUN 9 Creatinine 0.9 Est GFR (CKD-EPI 2020) 77.88 Glucose 99 Calcium 9.4 Total Bilirubin 0.5 AST 31 ALT 35 Alkaline Phosphatase 132 H Troponin I < 50 Total Protein 8.2 Albumin 4.0
--- NOTE | 2023-02-25 09:50 | ANES.PREOP_ITS ---
General Info Date of Service Date Performed: 02/25/23 Height: 5 ft 8 in Weight: 108.862 kg Body Mass Index (BMI): 36.5 Surgical Procedure: Operation Date: 02/25/23 09:20 Proposed Procedure Side Surgeon p Gastroscopy/Removal Foreign Body Guevara Gonzalez MD Pre-Op Diagnosis Post-Op Diagnosis Food impaction of esophagus Meds Allergies and Home Medications Allergies Allergy/AdvReac Type Severity Reaction Status Date / Time No Known Allergies Allergy Unverified 02/25/23 05:08 Home Medication Medication Instructions Recorded fexofenadine 180 mg tablet 180 mg PO DAILY 03/03/14 (Aller-Ease) fluticasone propionate 50 2 spry inhalation DAILY 03/03/14 mcg/actuation nasal spray,suspension (Flonase) omeprazole 20 mg capsule,delayed 20 mg PO DAILY 03/03/14 release (Prilosec) dicyclomine 10 mg capsule 10 mg PO QID 10/15/19 fluocinonide 0.05 % topical 1 applic topical BID 10/15/19 solution magnesium oxide 400 mg PO DAILY 10/15/19 echinacea 400 mg capsule 400 mg PO DAILY 10/18/19 azelastine 137 mcg (0.1 %) nasal 1 spray intranasal BID 02/13/23 spray aerosol duloxetine 60 mg capsule,delayed 60 mg PO DAILY 02/13/23 release eletriptan 40 mg tablet See Rx Instructions PO .COMPLEX 02/13/23 melatonin 5 mg capsule 5 mg PO HS PRN 02/13/23 riboflavin (vitamin B2) 400 mg 400 mg PO DAILY 02/13/23 tablet semaglutide 1 mg/dose (4 mg/3 mL) 1 mg subcut QWEEK 02/13/23 subcutaneous pen injector (Ozempic) PFSH Active Problems Active Problems: Problem Status Onset Code Gastroesophageal reflux disease without esophagitis K21.9 Sessile colonic polyp K63.5 Tubular adenoma of colon D12.6 Food impaction of esophagus T18.128A Medical History Medical History Lumbar back pain LESI L4-5 10/2020 Eczema Obesity Major depression Hypomagnesemia Back pain History of adenomatous polyp of colon Hiatal hernia IBS (irritable bowel syndrome) Seasonal allergies GERD (gastroesophageal reflux disease) Depression Surgical History Surgical History History of esophageal dilatation obstruction removal and dilation done. History of colonoscopy x2 History of esophagogastroduodenoscopy (EGD) (~02/23/18) Tonsillectomy and adenoidectomy Cholecystectomy section Tobacco Smoking/Tobacco Use Status: Never Alcohol Alcohol Intake: current Alcohol intake frequency: a few times a month Substance Use Substance use: Occasionally Substance use type: marijuana Vital Signs and Lab Results Vital Signs Most Recent Vital Signs in EMR: Most Recent Vital Signs Temp Pulse Resp BP Pulse Ox 36.6 C 72 16 112/71 97 02/25/23 08:56 02/25/23 08:56 02/25/23 08:56 02/25/23 08:56 02/25/23 08:56 Lab Results 02/25/23 05:12 02/25/23 05:12 Blood Type / Crossmatch: 2 No Data to Display Complete Blood Count: 2 White Blood Count 5.93 10^3/uL (4.4-10.8) 02/25/23 05:12 Red Blood Count 4.55 10^6/uL (3.93-5.22) 02/25/23 05:12 Hemoglobin 13.8 g/dL (11.2-15.7) 02/25/23 05:12 Hematocrit 41.9 % (36.0-46.0) 02/25/23 05:12 Platelet Count 313 10^3/uL (130-400) 02/25/23 05:12 Complete Metabolic Panel: 2 Sodium 142 mmol/L (136-145) 02/25/23 05:12 Potassium 3.5 mmol/L (3.5-5.1) 02/25/23 05:12 Chloride 104 mmol/L (98-107) 02/25/23 05:12 Carbon Dioxide 31.0 mmol/L (21.0-32.0) 02/25/23 05:12 BUN 9 mg/dL (7-18) 02/25/23 05:12 Creatinine 0.9 mg/dL (0.55-1.02) 02/25/23 05:12 Est GFR (CKD-EPI 2020) 77.88 (mL/min/1.73m2) 02/25/23 05:12 Calcium 9.4 mg/dL (8.5-10.1) 02/25/23 05:12 Albumin 4.0 g/dL (3.4-5.0) 02/25/23 05:12 Glucose 99 mg/dL (74-106) 02/25/23 05:12 Liver Function Panel: 2 Alanine Aminotransferase (ALT/SGPT) 35 U/L (14-59) 02/25/23 05: 12 Aspartate Amino Transf (AST/SGOT) 31 U/L (15-37) 02/25/23 05:12 Coagulation Panel: 2 No Data to Display Cardiac Panel: 2 Troponin I < 50 ng/L (<or=60) 02/25/23 Arterial Blood Gas: 2 No Data to Display Venous Blood Gas: 2 No Data to Display Pancreas Panel: 2 No Data to Display Thyroid Panel: 2 No Data to Display Infectious Disease: 2 No Data to Display Blood Cultures: 2 No Data to Display Toxicology Panel: 2 No Data to Display Panel: 2 No Data to Display Anesthesia Assessment and Plan Anesthesia History Personal History: PONV and Delayed Emergence Family History: No Family History of Anesthesia Complications Exercise Tolerance Exercise Tolerance: Metabolic Equivalents>4 Pertinent Negatives Pertinent Negatives: No Major Cardiovascular Symptoms or Complaints and No Major Pulmonary Symptoms or Complaints Cardiac & Pulmonary Exam Cardiac Exam: Normal S1/S2 Heart Sounds Pulmonary Exam: Clear Bilateral Breath Sounds Implantable Cardiac Device Does patient have a Pacemaker or an ICD?: No Airway Exam Known Difficult Airway: No Mallampati Class: 1 Mouth Opening: Normal (> 3cm) Thyromental Distance: Greater than 3 cm Neck Range of Motion: Full ROM Neck Circumference: Normal Teeth Condition: Normal Dentition ASA Classification ASA Score: ASA 2 Emergency Case?: No NPO Status NPO Status: Full Stomach Status Status: Not Relevant due to Medical History Anesthesia Plan Resuscitation Status: Full Code Anesthesia Technique: General Anesthesia Airway Planned: Endotracheal Tube Monitors Used: Standard Monitors
[2023-02-25] MEDS: Lactated Ringers 1,000 ML 30 ML IV (10:05)
--- NOTE | 2023-02-25 10:47 | W.ANESPOSTOP ---
Postoperative Evaluation Date, Time and Location Date Performed: 02/25/23 Time Performed: 10:47 Patient Location: PACU Vital Signs Most Recent Imported Vital Signs: Most Recent Vital Signs Temp Pulse Resp BP Pulse Ox 36.5 C 84 20 129/77 97 02/25/23 10:40 02/25/23 10:40 02/25/23 10:40 02/25/23 10:40 02/25/23 10:40 Pain Score Most Recent Pain Score: Most Recent Pain Score Pain Level 2 02/25/23 05:05 Assessment Mental Status: Awake (Alert & Oriented to Patient Baseline) Airway and Respiratory Function: Patent airway with normal (patient baseline) respiratory exam Cardiovascular Function: Hemodynamically Stable Hydration Status: Adequately Hydrated Nausea & Vomiting: No Nausea or Vomiting Pain: Pt. Denies Any Pain Peripheral Nerve Block: Patient did not receive a nerve block
--- NOTE | 2023-02-25 10:58 | W.PM.ENDDOP ---
Date of service: 02/25/23 Time of Service: 10:30 Endoscopy Report PROCEDURE: Procedure: esophagogastroduodenoscopy with foreign body removal Pre-op Diagnosis: Esophageal foreign body / food impaction Post-op Diagnosis: Same Surgeon: Jose R Gonzalez Assist: None Anesthesia: Lynn Indication: Patient was eating chicken yesterday evening and feels like some is still stuck. This has happened to her before. Findings: Intubating the esophagus, a foreign body was encountered senior care down that appeared to be a food bolus. It was easily advanced in front of the scope through the lower esophageal sphincter and into the stomach without any significant resistance. Scope was withdrawn taking care to inspect the mucosa on the way out and it all appeared to be intact. There is no obvious reason for why the food got stuck endoscopically. Specifically there were no obvious lesions or webs and the diameter of the esophagus appeared normal. A small sliding hiatal hernia is present. Complications: None EBL: Minimal Surveillance/follow-up recommendations: As needed Specimens removed: No Grafts or implants: None Procedure in detail: Written consent was obtained from the patient who was in agreement with the risks, benefits and indications for the procedure. The risk of perforation and aspiration, although very low, were specifically discussed. The patient was taken to the endoscopy suite and laid in the left lateral decubitus position. We performed a timeout. When we were all in agreement anesthesia was given and I began the procedure. The endoscope was easily passed down into the proximal esophagus where the foreign body/food bolus was noted. It was then advanced in front of the scope into the stomach without any significant resistance. After identifying the foreign body/food bolus was within the stomach, I slowly removed the scope inspecting the esophageal mucosa on the way out. All of the mucosa appeared intact. There was no visible trauma to the esophagus. The endoscope was removed, the patient tolerated the procedure well and was then taken to the PACU in hemodynamically stable condition.
--- NOTE | 2023-02-25 10:59 | W.PM.DSUDISC ---
Date of service: 02/25/23 Time of Service: 11:00 Discharge Plan Disposition Patient Disposition: Home Condition: Good Discharge Details Reason For Visit: Can't Swallow, ten hours Attending Provider: Guevara Gonzalez Primary Care Provider: Jessica Mack Home Meds and New Rx's Prescriptions: No Action duloxetine 60 mg capsule,delayed release(DR/EC) 60 mg PO DAILY Ozempic 1 mg/dose (4 mg/3 mL) pen injector 1 mg subcut QWEEK eletriptan 40 mg tablet See Rx Instructions PO .COMPLEX Rx Instructions: take 1 tab at onset of headache; if no relief, may repeat 1 tab after at least 2 hrs; max = 2 tabs/24 hrs PO melatonin 5 mg capsule 5 mg PO HS PRN azelastine 137 mcg (0.1 %) aerosol,spray 1 spray intranasal BID Rx Instructions: administer into each nostril riboflavin (vitamin B2) 400 mg tablet 400 mg PO DAILY echinacea 400 mg capsule 400 mg PO DAILY Rx Instructions: administer with meals magnesium oxide 400 mg magnesium capsule 400 mg PO DAILY dicyclomine 10 mg capsule 10 mg PO QID fluocinonide 0.05 % solution 1 applic TP BID fexofenadine [Aller-Ease] 180 MG tablet 180 mg PO DAILY omeprazole [Prilosec] 20 MG capsule,delayed release(DR/EC) 20 mg PO DAILY fluticasone propionate [Flonase] 16 GM spray,suspension 2 spry Inhalation DAILY Discharge Instructions Activity:: Activity as Tolerated Diet:: As Tolerated Discharge Orders Discharge Orders: Discharge Order (Routine); Ordered 02/25/23 Ordered By: Guevara Gonzalez DS: Diagnosis Discharge Diagnosis (1) Food impaction of esophagus: Status: Acute Asessment and Plan: Food bolus was easily advanced into the stomach. Esophagus looked perfect -no trauma. Patient can be discharged home on a regular diet.
--- NOTE | 2023-02-25 12:37 | NUR.NOTE ---
pt arrived from PACU AAOx4 at 1100. Per surgery and nursing supervisor die casting pt is cleared for d/c. Pt denies CP/SOB. Denies difficulty swallowing- tolerating clear liquids. Vital signs stable. at bedside and will be driving pt home. Pt instructed not to drive today and to start with clear liquids and advance diet as tolerated per orders. Pt has no questions at this time. RN took pt out to car in wheelchair at 1236. Pt ambulated independently with no difficulty. Nursing Note:
== END 2023-02-25 12:36 | disposition home or self-care (01) ==
LOC: ER 07:44 → DSU 10:06
PROVIDERS: Student in an Organized Health Care Education/Training Program; Emergency Provider Emergency Medicine; PCP Family Medicine; Visit Provider Student in an Organized Health Care Education/Training Program
PROC: 0DC68ZZ Extirpation of Matter from Stomach, Via Natural or Artificial Opening Endoscopic (ICD-10-PCS; CPT 43247; principal; 2023-02-25 09:20)
DX: T18.128A Food in esophagus causing other injury, initial encounter (principal); W44.F3XA Food entering into or through a natural orifice, initial encounter; K21.9 Gastro-esophageal reflux disease without esophagitis; E66.9 Obesity, unspecified; K58.9 Irritable bowel syndrome, unspecified; E83.42 Hypomagnesemia; L30.9 Dermatitis, unspecified; F32.9 Major depressive disorder, single episode, unspecified
CPT/HCPCS: 43247; 00123; 80053; 70360; 71046; 84484; 85025; J1100; J1610; J2001; J2250; J2405; J2704

== ENCOUNTER 2023-02-27 09:10 | Day surgery (SDC) | payer OTHER, SELFPAY ==
--- NOTE | 2023-02-26 18:36 | W.PM.DSUDISC ---
Date of service: 02/27/23 Time of Service: 10:45 Discharge Plan Disposition Patient Disposition: Home Condition: Good Discharge Details Reason For Visit: screening colonocsopy Attending Provider: Rick Chacon Primary Care Provider: Jessica Mack Home Meds and New Rx's Prescriptions: Continued duloxetine 60 mg capsule,delayed release(DR/EC) 60 mg PO DAILY Ozempic 1 mg/dose (4 mg/3 mL) pen injector 1 mg subcut QWEEK eletriptan 40 mg tablet See Rx Instructions PO .COMPLEX Rx Instructions: take 1 tab at onset of headache; if no relief, may repeat 1 tab after at least 2 hrs; max = 2 tabs/24 hrs PO melatonin 5 mg capsule 5 mg PO HS PRN azelastine 137 mcg (0.1 %) aerosol,spray 1 spray intranasal BID Rx Instructions: administer into each nostril riboflavin (vitamin B2) 400 mg tablet 400 mg PO DAILY echinacea 400 mg capsule 400 mg PO DAILY Rx Instructions: administer with meals magnesium oxide 400 mg magnesium capsule 400 mg PO DAILY dicyclomine 10 mg capsule 10 mg PO QID fluocinonide 0.05 % solution 1 applic TP BID fexofenadine [Aller-Ease] 180 MG tablet 180 mg PO DAILY omeprazole [Prilosec] 20 MG capsule,delayed release(DR/EC) 20 mg PO DAILY fluticasone propionate [Flonase] 16 GM spray,suspension 2 spry Inhalation DAILY Discharge Instructions Instructions: Colorectal Polyps (GEN) Additional Instructions: Marli, we were able to complete your colonoscopy today without any issues. I did find 1 small polyp. I removed this completely. Once have the results of the polyp report I will be in touch with my recommendations for your next colonoscopy. If you have any issues in the meantime, please do not hesitate to call. 1. If tolerated, consume a soft, low fiber diet for 1-2 days. 2[address] Do not drive, drink alcohol, operate machinery, make critical decisions, or do activities that require coordination or balance for 24 hours. 3. Because air was put into your colon during the procedure, expelling air from your rectum (passing gas or farting) is normal. 4. You may not have a bowel movement for 1-3 days because of the colonoscopy prep. This is normal. 5. Go directly to the emergency room if you notice any of the following: Develop chills (warm to touch), or if you have a thermometer and your temperature is above 101 Difficulty breathing or difficultly swallowing Persistent vomiting Severe abdominal pain, other than gas cramps Severe chest pain Black, tarry stools Any bleeding ? exceeding one tablespoon 6. Call your physician if the site where your intravenous was started becomes red, swollen, painful, and warm to touch. 7. Your physician has reviewed your pre-procedure medications. Please continue to take those medications as previously ordered. You will be given specific information/education regarding any changes to your medications before leaving. Activity:: Activity as Tolerated Diet:: As Tolerated Discharge Orders Discharge Orders: Discharge Order (Routine); Ordered 02/26/23 Ordered By: Rick Chacon DS: Diagnosis Discharge Diagnosis (1) Encounter for screening colonoscopy: Status: Acute Asessment and Plan: Follow-up on polypectomy results
--- NOTE | 2023-02-26 18:38 | COLE_ITS ---
Date of service: 02/27/23 Time of Service: 10:46 Colonoscopy Report Date of procedure: 02/27/23 Pre-op diagnosis general: screening colonoscopy Post-op diagnosis procedure note: other (Cecal polyp) Procedure: colonoscopy with polypectomy Surgeon: Rick Chacon Anesthesia Type: General:No Airway Estimated blood loss (mL): 5 Pathology: other (0.25 cm cecal polyp) Complications: None Disposition: same day Indications: Marli is a 52 year old woman with a personal history of sessile serrated adenoma who needs her next screening colonoscopy Prep: Miralax/Dulcolax Procedure Start Time: 10:26 Procedure End Time: 10:39 Retraction Time: 8 Findings: 0.25 cm flat cecal polyp Procedure Description: After the induction of monitored anesthetic care, and with the patient in left lateral decubitus position, I began by performing an external anorectal exam.? Perineum and skin were normal, as was the anal verge.? There was no evidence of external hemorrhoids.? Next, I performed a digital rectal exam.? I did not appreciate any abnormal findings.? Next, I advanced a colonoscope into the rectal vault.? I performed retroflexion.? This appeared normal.? Using insufflation, I then advanced the colonoscope beyond the rectal folds and into the sigmoid colon before advancing towards the cecum.? The scope was noted to be in the cecum by identification of the ileocecal valve and appendiceal orifice.? Within the cecal vault, was a 0.25 cm flat polyp. I removed this with cold forceps. There was minimal bleeding. I then began withdrawing the colonoscope using repeated irrigation as necessary for full evaluation of the colonic muco sa. ?Once the scope was withdrawn to the level of the rectum, great care was taken to examine portions of the rectal folds.? Finally, the scope was withdrawn and the patient was brought to the same-day surgery recovery unit as the anesthetic wore off. ?The findings and instructions were shared with the patient prior to discharge. [place] Bowel Prep [place] Bowel Prep Right Colon: 3 Left Colon: 3 Transverse Colon: 3 Total Score: 9
--- NOTE | 2023-02-27 06:18 | ANES.PREOP_ITS ---
General Info Date of Service Date Performed: 02/27/23 Height: 5 ft 8 in Weight: 108.862 kg Body Mass Index (BMI): 36.5 Surgical Procedure: Operation Date: 02/27/23 10:50 Proposed Procedure Side Surgeon alcides Chacon MD Meds Allergies and Home Medications Allergies Allergy/AdvReac Type Severity Reaction Status Date / Time No Known Allergies Allergy Unverified 02/27/23 09:29 Home Medication Medication Instructions Recorded fexofenadine 180 mg tablet 180 mg PO DAILY 03/03/14 (Aller-Ease) fluticasone propionate 50 2 spry inhalation DAILY 03/03/14 mcg/actuation nasal spray,suspension (Flonase) omeprazole 20 mg capsule,delayed 20 mg PO DAILY 03/03/14 release (Prilosec) dicyclomine 10 mg capsule 10 mg PO QID 10/15/19 fluocinonide 0.05 % topical 1 applic topical BID 10/15/19 solution magnesium oxide 400 mg PO DAILY 10/15/19 echinacea 400 mg capsule 400 mg PO DAILY 10/18/19 azelastine 137 mcg (0.1 %) nasal 1 spray intranasal BID 02/13/23 spray aerosol duloxetine 60 mg capsule,delayed 60 mg PO DAILY 02/13/23 release eletriptan 40 mg tablet See Rx Instructions PO .COMPLEX 02/13/23 melatonin 5 mg capsule 5 mg PO HS PRN 02/13/23 riboflavin (vitamin B2) 400 mg 400 mg PO DAILY 02/13/23 tablet semaglutide 1 mg/dose (4 mg/3 mL) 1 mg subcut QWEEK 02/13/23 subcutaneous pen injector (Ozempic) Current Visit Medications: Current Medications Generic Name Dose Route Start Last Admin Trade Name Freq PRN Reason Stop Dose Admin Hyoscyamine Sulfate 0.125 mg 02/26/23 18:39 Hyoscyamine 0.125 Mg Sl/Oral/Chew SL 03/28/23 18:38 DIRECTED PRN Ringer's Solution 1,000 mls @ 80 mls/hr 02/27/23 06:00 IV 03/26/23 23:59 INFUSION [facility] IV Miscellaneous Supplies 1 each 02/27/23 06:00 Iv Access IV 03/26/23 23:59 DIRECTED [facility] Ondansetron HCl 4 mg 02/26/23 18:39 Ondansetron 4 Mg/2 Ml Vial IVP 03/28/23 18:38 Q4H PRN PRN Nausea / Vomiting Sodium Chloride 0 ml 02/27/23 06:00 Normal Saline Flush 10 Ml Syr IV 03/26/23 23:59 PRN PRN Sodium Chloride 0 ml 02/27/23 06:00 Normal Saline 10 Ml Vial IJ 03/26/23 23:59 DIRECTED PRN Sterile Water 0 ml 02/27/23 06:00 Water,Injection,Sterile 10 Ml Vial IJ 03/26/23 23:59 DIRECTED PRN PFSH Active Problems Active Problems: Problem Status Onset Code Encounter for screening colonoscopy Z12.11 Gastroesophageal reflux disease without esophagitis K21.9 Sessile colonic polyp K63.5 Tubular adenoma of colon D12.6 Food impaction of esophagus T18.128A Medical History Medical History Lumbar back pain LESI L4-5 10/2020 Eczema Obesity Major depression Hypomagnesemia Back pain History of adenomatous polyp of colon Hiatal hernia IBS (irritable bowel syndrome) Seasonal allergies GERD (gastroesophageal reflux disease) Depression Surgical History Surgical History History of esophageal dilatation obstruction removal and dilation done. History of colonoscopy x2 History of esophagogastroduodenoscopy (EGD) (~02/23/18) Tonsillectomy and adenoidectomy Cholecystectomy section Tobacco Smoking/Tobacco Use Status: Never Alcohol Alcohol Intake: current Alcohol intake frequency: a few times a month Substance Use Substance use: Occasionally Substance use type: marijuana Vital Signs and Lab Results Vital Signs Most Recent Vital Signs in EMR: Temp Pulse Resp BP Pulse Ox 36.4 C L 77 18 104/90 95 02/27/23 09:27 02/27/23 09:27 02/27/23 09:27 02/27/23 09:27 02/27/23 09:27 Lab Results Blood Type / Crossmatch: No Data to Display Complete Blood Count: 2 White Blood Count 5.93 10^3/uL (4.4-10.8) 02/25/23 05:12 Red Blood Count 4.55 10^6/uL (3.93-5.22) 02/25/23 05:12 Hemoglobin 13.8 g/dL (11.2-15.7) 02/25/23 05:12 Hematocrit 41.9 % (36.0-46.0) 02/25/23 05:12 Platelet Count 313 10^3/uL (130-400) 02/25/23 05:12 Complete Metabolic Panel: Sodium 142 mmol/L (136-145) 02/25/23 05:12 Potassium 3.5 mmol/L (3.5-5.1) 02/25/23 05:12 Chloride 104 mmol/L (98-107) 02/25/23 05:12 Carbon Dioxide 31.0 mmol/L (21.0-32.0) 02/25/23 05:12 BUN 9 mg/dL (7-18) 02/25/23 05:12 Creatinine 0.9 mg/dL (0.55-1.02) 02/25/23 05:12 Est GFR (CKD-EPI 2020) 77.88 (mL/min/1.73m2) 02/25/23 05:12 Calcium 9.4 mg/dL (8.5-10.1) 02/25/23 05:12 Albumin 4.0 g/dL (3.4-5.0) 02/25/23 05:12 Glucose 99 mg/dL (74-106) 02/25/23 05:12 Liver Function Panel: Alanine Aminotransferase (ALT/SGPT) 35 U/L (14-59) 02/25/23 05: 12 Aspartate Amino Transf (AST/SGOT) 31 U/L (15-37) 02/25/23 05:12 Coagulation Panel: No Data to Display Cardiac Panel: Troponin I < 50 ng/L (<or=60) 02/25/23 Arterial Blood Gas: No Data to Display Venous Blood Gas: No Data to Display Pancreas Panel: No Data to Display Thyroid Panel: No Data to Display Infectious Disease: No Data to Display Blood Cultures: No Data to Display Toxicology Panel: No Data to Display Panel: No Data to Display Anesthesia Assessment and Plan Anesthesia History Personal History: PONV and Delayed Emergence Family History: No Family History of Anesthesia Complications Exercise Tolerance Exercise Tolerance: Metabolic Equivalents>4 Pertinent Negatives Pertinent Negatives: No Symptoms of GERD, No Major Cardiovascular Symptoms or Complaints and No Major Pulmonary Symptoms or Complaints Cardiac & Pulmonary Exam Cardiac Exam: Normal S1/S2 Heart Sounds Pulmonary Exam: Clear Bilateral Breath Sounds Implantable Cardiac Device Does patient have a Pacemaker or an ICD?: No Airway Exam Known Difficult Airway: No Mallampati Class: 1 Mouth Opening: Normal (> 3cm) Thyromental Distance: Greater than 3 cm Neck Range of Motion: Full ROM Neck Circumference: Normal Teeth Condition: Normal Dentition ASA Classification ASA Score: ASA 2 Emergency Case?: No NPO Status NPO Status: NPO Clears >2 hours, Solids >8 hours Status Status: Not Relevant due to Medical History (post-menopausal) Anesthesia Plan Resuscitation Status: Full Code Anesthesia Technique: General Anesthesia Airway Planned: Natural Airway Monitors Used: Standard Monitors Preoperative Comments:: 52 yo female for colo. Sig PMhx: GERD, depression, semaglutide, never smoker, occ EtOH/cannabis. Previous anes: - egd, glide 3 grade 1
[2023-02-27 09:27] VITALS: BP 104/90; PULSE 77; RESP 18; TEMP 36.4; O2SAT 95
[2023-02-27] MEDS: Lactated Ringers 1,000 ML 80 ML IV (09:50)
[2023-02-27 10:02] VITALS: BMI 36.5
--- NOTE | 2023-02-27 10:31 | BOWEL_PTH ---
PATIENT: Marli Long LOC: [facility] U#:[id number] AGE/SX: 52/F ROOM: RE02/27/[address]: Rick Chacon MD : 1970 BED: DIS: 02/27/2023 SPEC #: [id number] RECD: 02/27/23 13:05 STATUS: EDWARD REQ #: [id number] MORENO: 02/27/23 10:[address]: Rick Chacon DEPT: Surgical Specimen RECD BY: Loyda Gates ENTERED: 02/27/23 13:06 SP TYPE: Bowel OTHR DR: Jessica Mack Tissues: 1 - BIOPSY BOWEL Procedures: GROSS AND MICRO LEVEL 4 Comments: [id number]
[2023-02-27 10:45] VITALS: BP 98/66; PULSE 71; RESP 18; TEMP 36.3; O2SAT 95
--- NOTE | 2023-02-27 10:54 | W.ANESPOSTOP ---
Postoperative Evaluation Date, Time and Location Date Performed: 02/27/23 Time Performed: 10:54 Patient Location: Day Surgery Unit Vital Signs Most Recent Imported Vital Signs: Most Recent Vital Signs Temp Pulse Resp BP Pulse Ox 36.3 C L 71 18 98/66 L 95 02/27/23 10:45 02/27/23 10:45 02/27/23 10:45 02/27/23 10:45 02/27/23 10:45 Pain Score Most Recent Pain Score: Most Recent Pain Score Pain Level 0 02/27/23 10:45 Assessment Mental Status: Awake (Alert & Oriented to Patient Baseline) Airway and Respiratory Function: Patent airway with normal (patient baseline) respiratory exam Cardiovascular Function: Hemodynamically Stable Hydration Status: Adequately Hydrated Nausea & Vomiting: No Nausea or Vomiting Pain: Pt. Denies Any Pain Peripheral Nerve Block: Patient did not receive a nerve block
[2023-02-27 11:00] VITALS: BP 91/70; PULSE 66; RESP 16; TEMP 36.5; O2SAT 96
[2023-02-27 11:31] VITALS: BP 109/71; PULSE 68; RESP 16; O2SAT 98
== END 2023-02-27 11:43 | disposition home or self-care (01) ==
LOC: SUR 09:10
PROVIDERS: PCP Family Medicine; Visit Provider Surgery
PROC: 0DJD8ZZ Inspection of Lower Intestinal Tract, Via Natural or Artificial Opening Endoscopic (ICD-10-PCS; CPT 45378; principal; 2023-02-27 10:45)
DX: Z12.11 Encounter for screening for malignant neoplasm of colon (principal); D12.0 Benign neoplasm of cecum; Z86.010 Personal history of colon polyps; K21.9 Gastro-esophageal reflux disease without esophagitis
CPT/HCPCS: 45380; 81025; 88305; J2405

== ENCOUNTER 2023-08-28 18:03 | Outpatient (REF) | payer OTHER, SELFPAY ==
--- NOTE | 2023-08-28 16:00 | PAPFT_PTH ---
PATIENT: Marli Long LOC: [facility] #:[id number] AGE/SX: 53/F ROOM: RE08/28/[address]: Jessica Mack : 1970 BED: DIS: 08/28/2023 SPEC #: [id number] RECD: 08/28/23 18:16 STATUS: EDWARD RESony #: [id number] MOERNO: 08/28/23 16:[address]: Jessica Mack DEPT: [facility], [facility] Cytology RECD BY: Loyda Gates Tissues: 1 - CX/ENDOCX FOR PAP SMEARS Procedures: PAP THIN PREP/UVM Screening HPV DNA PROBE Comments: [id number]
== END 2023-08-28 18:04 | disposition home or self-care (01) ==
LOC: NCHCN 18:03
PROVIDERS: PCP Family Medicine; Visit Provider Family Medicine
DX: Z12.4 Encounter for screening for malignant neoplasm of cervix (principal); Z11.51 Encounter for screening for human papillomavirus (HPV)
CPT/HCPCS: 88142; 87624

== ENCOUNTER 2024-03-14 01:46 | Outpatient (CLI) | payer OTHER, SELFPAY ==
--- NOTE | 2024-03-14 15:20 | DI.MAMMO_ITS ---
Exam(s) MAMMO SCREENING EXAM: MAMMO SCREENING CLINICAL HISTORY: SCREENING MAMMO Z12.31. TECHNIQUE: Bilateral full field digital CC and MLO mammographic images were obtained with 3D tomosyn thesis and utilizing computer aided detection (CAD). COMPARISON: Prior mammograms were reviewed. FINDINGS: Fibroglandular tissue pattern is again noted be moderately dense. There are no obvious new spiculated masses nor new malignant appearing microcalcification groups. Be nign microcalcifications are noted. There is no significant architectural distortion nor skin thickening-retraction. IMPRESSION: 1. No radiographic evidence of malignancy. 2. In reviewing the technologist notes there is the statement ???patient noticed something on left b reast, unspecified???. Therefore this becomes a requirement for diagnostic mammogram and given the d ensity of her fibroglandular tissue also recommend ultrasound. BI-RADS Category 0 - Incomplete: Need additional imaging evaluation Breast Density - Category C - Heterogeneously dense Breast density Category C or D implies that the patient has dense breast tissue. Dense breast tissue can make it harder to find cancer on a mammogram. Dense breast tissue is also associated with an incr eased risk of breast cancer. This information about the result of the mammogram report was provided to the patient to raise their awareness. Use this report when you speak with the patient about their risks for breast cancer, which includes their family history. At that time, you may recommend additional screening tests (Ultrasoun d or MRI) as these tests may add significant information. A negative radiographic report should not delay biopsy if a dominant or clinically suspicious mass is present. Up to ten percent of cancers are not identified on mammography. A negative report may reinforce clinical impression. Adenosis and dense breasts may obscure an underlying neoplasm. False positive reports average 6 to 10%. Patient will receive a letter notifying them of these results.
== END 2024-03-14 02:06 ==
LOC: DI 01:47
PROVIDERS: PCP Family Medicine; Visit Provider Family Medicine
DX: Z12.31 Encounter for screening mammogram for malignant neoplasm of breast (principal); R92.333 Mammographic heterogeneous density, bilateral breasts
CPT/HCPCS: 77063; 77067

== ENCOUNTER 2024-03-22 00:15 | Outpatient (CLI) | payer OTHER, SELFPAY ==
--- NOTE | 2024-03-22 10:44 | DI.RAD_ITS ---
Exam(s) RF BARIUM SWALLOW EXAM: RF BARIUM SWALLOW CLINICAL HISTORY: Ongoing globus sensation and dysphagia,FOOD IMPACTION ESOPHAGUS TECHNIQUE: 2D and realtime digital imaging was performed. CONTRAST MATERIAL: Oral barium contrast was administered. COMPARISON: CR XR CHEST 2V PA LATERAL from 02/25/2023 FINDINGS: CHEST X-RAY: The heart and pulmonary vasculature are within normal limits. The lungs are clear. No pl eural effusion or pneumothorax is present. The bones are within normal limits for the patient's age. ESOPHAGRAM: The esophagus is patent with no evidence for erosions, fold thickening, strictures, or ma sses. With regards to the motility, there is a normal primary stripping wave. No tertiary contraction s were noted. There is a small hiatal hernia. There was no gastroesophageal reflux. A barium tablet passed without difficulty. IMPRESSION: Normal esophagram RADIATION DOSE DELIVERED: ronny Goldstein=16 mGy
[2024-03-22] MEDS: Barium Sulfate 700 MG TAB PO (10:46)
[2024-03-22] MEDS: Barium Sulfate 98% W/W 140 ML BTL PO (10:47)
[2024-03-22] MEDS: Barium Sulfate 60% W/V 355 ML BTL PO (10:47)
== END 2024-03-22 00:35 ==
LOC: DI 00:15
PROVIDERS: PCP Family Medicine; Visit Provider Surgery
DX: T18.128A Food in esophagus causing other injury, initial encounter (principal)
CPT/HCPCS: 74221; J3490

== ENCOUNTER 2024-08-30 17:21 | Outpatient (REF) | payer OTHER, SELFPAY ==
[2024-08-30 20:59] LABS: HCT 40.2 % (36.0-46.0); HGB 13.1 g/dL (11.2-15.7); MCH 30.5 pg (27.0-33.0); MCHC 32.6 % (32.0-36.0); MCV 94 fL (80-95); MPV 9.6 fL (8.0-11.0); Platelet Count 318 10^3/uL (130-400); RDW 12.1 % (11.7-14.6); RDW-SD 41.4 fL; WBC 5.91 10^3/uL (4.4-10.8)
[2024-08-30 21:14] LABS: Hemoglobin A1C 5.3 % (<5.7)
[2024-08-30 21:23] LABS: ALT 59 U/L (14-59); AST 37 U/L (15-37); Alkaline Phosphatase 137 U/L (46-116); Anion Gap 4.7 mmol/L (3-11); BUN 10 mg/dL (7-18); Bilirubin, Total 0.3 mg/dL (0.2-1.0); CO2 34.3 mmol/L (21.0-32.0); CREATININE 0.9 mg/dL (0.55-1.02); Calcium 9.1 mg/dL (8.5-10.1); Chloride 103 mmol/L (98-107); Estimated GFR 76.92 (mL/min/1.73m2); Glucose 84 mg/dL (74-106); Potassium 3.8 mmol/L (3.5-5.1); Sodium 142 mmol/L (136-145); TSH (W/Ref FT4) 1.21 uIU/mL (0.36-3.74); Total Protein 7.3 g/dL (6.4-8.2)
[2024-09-02 09:35] LABS: IgA 147 mg/dL (85-499)
[2024-09-03 12:10] LABS: Tissue Transglutaminase IgA <4.0 CU (<20.0)
== END 2024-08-30 17:22 | disposition home or self-care (01) ==
LOC: NCHCN 17:21
PROVIDERS: PCP Family Medicine; Visit Provider Family Medicine
DX: R11.0 Nausea (principal); Z13.1 Encounter for screening for diabetes mellitus
CPT/HCPCS: 80053; 82784; 85027; 83036; 84443

== ENCOUNTER 2024-09-12 11:10 | Outpatient (REF) | payer OTHER, SELFPAY ==
[2024-09-12 15:12] LABS: ALT 54 U/L (14-59); AST 46 U/L (15-37); Albumin 3.9 g/dL (3.4-5.0); Alkaline Phosphatase 122 U/L (46-116); Bilirubin, Direct 0.1 mg/dL (0.0-0.2); Bilirubin, Total 0.4 mg/dL (0.2-1.0); Total Protein 7.5 g/dL (6.4-8.2)
== END 2024-09-12 11:11 | disposition home or self-care (01) ==
LOC: NCHCN 11:10
PROVIDERS: PCP Family Medicine; Visit Provider Family Medicine
DX: R47.89 Other speech disturbances (principal)
CPT/HCPCS: 80076

== ENCOUNTER 2024-09-20 00:21 | Outpatient (CLI) | payer OTHER, SELFPAY ==
--- NOTE | 2024-09-20 | DI.MRI_ITS ---
Exam(s) MR BRAIN WO EXAM: MR BRAIN WO CLINICAL HISTORY: Frequent GARCES, R51.9; dizziness and giddiness, R42 TECHNIQUE: Multiplanar multisequence MRI of the brain was performed. COMPARISON: No exams were available for comparison FINDINGS: VENTRICLES AND EXTRA AXIAL SPACES: Normal in size and morphology for the patient's age. MIDLINE SHIFT: None. CEREBRAL PARENCHYMA: No focus of restricted diffusion to suggest acute infarct. No space-occupying lesion identified. No evidence of atrophy. No abnormal high signal lesions in the white matter. BRAINSTEM/CEREBELLUM: Normal. VISUALIZED PARANASAL SINUSES: Clear. MASTOIDS:Clear. Vasculature: Normal flow void. PITUITARY GLAND: Unremarkable. ORBITS: Unremarkable. IMPRESSION: Unremarkable MRI of the brain. DATA REPOSITORY:
== END 2024-09-20 00:41 ==
LOC: DI 00:21
PROVIDERS: PCP Family Medicine; Visit Provider Family Medicine
DX: R51.9 Headache, unspecified (principal); R42 Dizziness and giddiness
CPT/HCPCS: 70551

== ENCOUNTER 2025-02-26 09:08 | Outpatient (REF) | payer OTHER, SELFPAY ==
[2025-02-26 16:49] LABS: ALT 42 U/L (10-49); AST 41 U/L (<34); Albumin 4.1 g/dL (3.2-5.0); Alkaline Phosphatase 95 U/L (46-116); Bilirubin, Direct 0.1 mg/dL (<=0.3); Bilirubin, Total 0.4 mg/dL (0.2-1.2); Total Protein 6.8 g/dL (5.7-8.2)
[2025-02-26 16:51] LABS: GGT 29 U/L (<38)
== END 2025-02-26 09:09 | disposition home or self-care (01) ==
LOC: NCHCN 09:08
PROVIDERS: PCP Family Medicine; Visit Provider Family Medicine
DX: R79.89 Other specified abnormal findings of blood chemistry (principal)
CPT/HCPCS: 80076; 82977